=== PATIENT | female | born 1955 | race Caucasian/White ===

== ENCOUNTER 2024-07-12 12:21 | Outpatient (REF) | payer MEDICARE, SELFPAY ==
--- NOTE | ~2024-07-12 | XR_ITS ---
EXAMINATION: XR KNEE, LEFT CLINICAL INFORMATION: M25.562 - Pain in left knee COMPARISON: October 12, 2007 x-rays not available on PACS, the report size degenerative arthritis in the medial joint. TECHNIQUE: Four views of the left knee. FINDINGS: Joint space narrowing involving medial and to a lesser extent lateral compartment and the patellofemoral joint. There is sclerosis at the articular surface of the medial tibial plateau and medial femoral condyle. There are marginal osteophyte formation both femoral condyles and tibial plateaus and the posterior superior and posterior inferior patella. No gross suprapatellar bursa joint effusion. No acute cortical disruption or malalignment. No lytic or blastic lesions. XR/XR knee LT 3V IMPRESSION: Moderate to severe tricompartmental osteoarthrosis involving mostly the medial compartment. Electronically signed by: Hua De La Fuente MD 07/15/2024 08:33 AM JULIA
--- OUTSIDE RECORDS SUMMARY | 2024-07-13 14:41 | XMS_ITS | Encounter Summary ---
Author Organization [facility] [place] [address] Care Team Providers Care Carpet Technician Name Role Phone Sadie Mccurdy DO Primary Care Provider [phone] Encounter Details Date Type Department Care Team (Late st Contact Info) Description 07/13/2024 Notes Only Hematology [place] [address] Nabeel Ocasio, RN Social History Tobacco Use Types Packs/Day Years Used Date Smoking Tobacco: Never Smokeless Tobacco: Never Alcohol Use Standard Drinks/Week Comments Yes 4 (1 standard drink = 0.6 oz pur e alcohol) Sex and Gender Information Value Date Recorded Sex Assigned at Female 06/02/2021 3:00 PM EST Gender Identity Female 02/09/2020 3:19 PM EDT Sexual Orientation Not on file documented as of this encounter Progress Notes * Nabeel Ocasio RN - 07/13/2024 9:22 AM EST RESEARCH NURSE TELEPHONE NOTE C31200: A Phase III Randomized, Double-Blind, Multicenter Study of Dostarlimab (TSR-042) plus Carboplatin -Paclitaxel vs. Placebo Plus Carboplantin - Paclitaxel in Patients with Recurrent or Primary Advanced Endometrial Cancer (FABIOLA). Date: 07/13/2024 Time: 9:29 AM Reason for call: Called to check on status of questionnaire we had mailed her. Questionnaire due bytomorrow. Received a voice message with Elyssa Romero identifying herself. Left a message reminding her that the questionnaire we mailed her is due by tomorrow and asking her to complete it and send in by tomorrow. Asked her to call me with an update. Left my callback number. Plan: Will wait for callback. If no callback by tomorrow, will call again. Pt will continue on study [id number] in survival per protocol. Patient being followed at [facility], Will continue to contact for survival and questionnaires per protocol. documented in this encounter Plan of Treatment Not on file documented as of this encounter Visit Diagnoses Not on filedocumented in this encounter Care Teams Carpet Technician Relationship Specialty Start Date End Date Sadie Mccurdy DO [address] [place] [address] PCP - General Internal Medicine 10/28/18 documented as of this encounter
--- OUTSIDE RECORDS SUMMARY | 2024-07-13 14:41 | XMS_ITS ---
Author Organization [facility] Address [address] [place] [address] Care Team Providers Care Ophthalmology Assistant Name Role Phone Dr Sadie Mccurdy Primary Care Provider Mikal Medrano MD MSc, Joann Unavailable [phone] Nancy Holley Unavailable [phone] REASON FOR VISIT Knee pain Encounters Encounter Location Date Provider Diagnosis [facility]- [address] [address] 05/26/2023 Nancy Holley Plan Of Treatment No Information Progress Notes * Louie HUNTaDOB:1955 (68 yo F)Acc No.[id number]:05/26/2023 Progress Note Patient:?Elyssa HNUT Provider:?Nancy Martinez NP :1955???Age:67 Y???Sex:Female D ate:05/26/2023 Address:[facility] [address], [place], [phone] Pcp:Dr Sadie Mccurdy Subjective: * Chief Complaints: * ???1. Knee pain. * Medical History:? Objective: * Vitals:? Assessment: Plan: * Treatment: * Images: Billing Information: * Visit Code:? * Procedure Codes:? * Electronic signature of Yaw Holley NP on 07/13/2024 at 02:41 PM EST Sign off status: Pending * Provider:?Nancy Martinez NP Date:?05/26 Generated for Mervin villatoro/Nicole/eTransmitting on:?07/13/2024 02:41 PM EST
--- OUTSIDE RECORDS SUMMARY | 2024-07-13 14:41 | XMS_ITS | Clinical Summary ---
Author Organization [facility] Address [facility] [place] [address] Care Team Providers Care Supervisor Parachute Manufacturing Name Role Phone Sadie Mccurdy DO Primary Care Provider Allergies Active Allergy Reactions Criticality Noted Date [...] in partial remission 10/28/2018 Elevated cholesterol 10/28/2018 Encounters Date Type Department Care Team Description 07/13/2024 Notes Only Hematology and Oncology at [facility] [place] [address] Nabeel Ocasio RN from Last 3 Months Immunizations Name Administration Dates Next Due Covid-19 Monovalent (Moderna Spikevax) 12yrs+ (3357-9917) 08/23/2020,07/26/2020 Social History Tobacco Use Types Packs/Day [...] 01/10/2020, 01/10/2020 Medical Devices Explanted Type Area Unix Analyst Device Identifier Shelf Expiration Date Model / Serial / Lot Port Infusion 8fr Cath Power Lp Ct Plastic Dignity ([id number])-04/11/2020 Implanted:Qty : 1 on 04/11/2020 by Candie Centeno APRN Explanted:Qty : 1 on 11/06/2020 by Louie Man MD IMPLANTS Chest Wall [employer] - MEDCOMP IN [id number] / / [id number] Description:8FR MINI POWER P ORT IN RIGHT [...] Screening: January 27, 2024 - Exam #: [id number] Bilateral CC and MLO view(s) were taken. Technologist: TONIO Moser RT (R) (M) (ARRT) Prior study comparison: January 14, 2023, bilateral MA mammogram digital screening performed at . December 05, 2021, bilateral MA mammogram digital screening performed at . ??December 04, 2020, bilateral [place] mammogram digital screening performed at . The breast tissue is heterogeneously dense, which [...] Screening: January 27, 2024 - Exam #: [id number] Bilateral CC and MLO view(s) were taken. Technologist: TONIO Moser RT (R) (M) (ARRT) Prior study comparison: January 14, 2023, bilateral MA mammogram digital screening performed at . December 05, 2021, bilateral [place] mammogram digital screening performed at . December 04, 2020, bilateral [place] mammogram digital screening performed at . The breast tissue is heterogeneously dense, which [...] *#* *#* Read by: Gordy Romero M.D. Thaiephraim Mccurdy DO G MAMMO ORDERABLES * Comprehensive metabolic panel (non-fasting) (10/16/2021 12:39 PM EDT) Glucose 88 65 - 199 mg/dL [facility] Comment:Diabetes: >=200 mg/d L plus symptoms Blood Urea Nitrogen 12 8 - 18 mg/dL [facility] Creatinine 0.76 0.70 - 1.20 mg/dL [facility] Sodium 141 135 - 145 mmol/L [facility] Potassium 4.1 3.5 - 5.0 mmol/L [facility] Comment: Please note: ??Patients with WBC >100,000 may have falsely elevated Potassium levels. ??For accurate Potassium quantification in these patients send serum separator tube (gold top) for subsequent determinations. ??Contact the Clinical Chemistry Laboratory if there are any questions. Chloride 106 98 - 107 mmol/L [facility] Carbon Dioxide 25 22 - 31 mmol/L [facility] Anion Gap 10 5 - 15 mmol/L [facility] Calcium 9.6 8.5 - 10.5 mg/dL [facility] Protein, Total 7.0 6.1 - 8.0 g/dL [facility] Albumin 4.6 3.2 - 5.2 g/dL [facility] Aspartate Aminotransferase 18 0 - 30 unit/L [facility] Alanine Aminotransferase 18 0 - 30 unit/L [facility] Alkaline Phosphatase 45 35 - 105 unit/L [facility] Bilirubin, Total 0.5 0.2 - 1.3 mg/dL [facility] Est Glomerular Filtration Rate 83 >=60 mL/min/1. 73 m?? [facility] Comment: This patient? s estimated glomerular [...] In Lab Konrad Maldonado MD CHEMISTRY ORDERABLES [facility] [place] [address] * COLONOSCOPY (01/10/2020 3:33 PM EDT) COLONOSCOPY [facility] Endoscopy Procedure Date: 01/10/2020 3:33 PM ? Patient Name: Elyssa Romero ? Date of : 1955 ? Age: 64 ? Order #: [id number] ? Instrument Name: [id number] ? Procedure: ? Colonoscopy Indications: ? High risk colon cancer surveillance: ? Personal history of colonic polyps Providers: ? Nata Landin MD, Chaim Maldonado, ? RN, Yury Woodard MD: ?Sadie Mccurdy Medicines: ? Monitored Anesthesia Care Complications: ? No [...] preparation was evaluated using ? the BBPS ([place] Bowel Preparation ? Scale) with scores of: [...] individual at high risk CPT copyright 2019 [employer]. All rights reserved. The codes documented in this report are preliminary and upon chain maker hand review may be revised to meet current [...] Documents on File Type Date Recorded Patient Press Leader Expl anation Advance Directives and Livin g [...] Status decision made by: Patient Care Teams Supervisor Parachute Manufacturing Relationship Specialty Start Date End Date Sadie Mccurdy DO [address] [place] [address] PCP - General Internal Medicine 10/28/18
--- OUTSIDE RECORDS SUMMARY | 2024-07-13 14:41 | XMS_ITS ---
Author Organization [facility] Address [facility] [place] [address] Care Team Providers Care Motor Vehicle Lecturer Name Role Phone Sadie Mccurdy DO Primary Care Provider [phone] Active Problems Problem Noted Date Diagnosed Date Osteoarthritis of both knees 11/06/2020 Chemotherapy-induced thrombocytopenia 07/17/2020 Recurrent carcinoma of endometrium 03/09/2020 Mild intermittent asthma 10/28/2018 Recurrent major depressive disorder, in partial remission 10/28/2018 Elevated cholesterol 10/28/2018 Current Oncology Plans No current plan information found. Past Plans ADULT INVESTIGATIONAL Plan Name Start Date Discontinue Date Treatment Medications Discontinue Reason Plan Provider Cycles [id number] AMB - (CARBOplatin / PACLitaxel / [id number] DOSTARLIMAB OR PLACEBO) 020 03/06/2022 CARBOplatin (Paraplatin) in 150 mL [id number] dostarlimab or placebo infusionPACLitaxeL (Taxol) in Non-PVC sodium chloride 0.9% 250 mL infusion Therapy Complete Konrad Maldonado MD 13 of 14 cycles started Mediport Maintenance Plan Name Start Date Discontinue Date Treatment Medications Discontinue Reason Plan Provider DH MEDIPORT ADMINISTRATION 06/05/2020 12/02/2023 No medications scheduled. Therapy Complete - Radiation Treatments * No radiation treatments are documented for this patient in [facility]. Treatments may have been administered in another system. Lifetime Dose Tracking * Chemical Lifetime Dose Automatic Entry Manual Entr y DLP (Dose Length Product) 2,601 mGy-cm 2,601 mGy-cm 0 mGy-cm CTDI (CT Dose Index) Min 36.91 mGy 36.91 mGy 0 m Gy CTDI (CT Dose Index) Max 36.91 mGy 36.91 mGy 0 m Gy
--- OUTSIDE RECORDS SUMMARY | 2024-07-13 14:42 | XMS_ITS ---
Author Organization [facility] Address [address] [place] [address] Care Team Providers Care Senior Health Physics Technician Name Role Phone Dr Sadie Mccurdy Primary Care Provider Mikal Medrano MD MSc, [facility] [phone] REASON FOR VISIT Former Stem Cell Encounters Encounter Location Date Provider Diagnosis [facility] [address] [address] 05/26/2023 Joann Medrano Plan Of Treatment No Information Progress Notes * Louie HUNTaDOB:1955 (68 yo F)Acc No.[id number]:05/26/2023 Patient:?Elyssa HUNT Provider:?Joann Medrano MD MSc :1955???Age:67 Y???Sex:Female D ate:05/26/2023 Address:[facility] [address], [place], [id number] Pcp:Dr Sadie Mccurdy Subjective: * Chief Complaints: * ???1. Former Stem Cell. * Medical History:? Objective: * Vitals:? Assessment: Plan: * Treatment: * Images: Billing Information: * Visit Code:? * Procedure Codes:? * Electronic signature of Annalise Medrano MD MSc, MD on 07/13/2024 at 02:41 PM EST Sign off status: Pending * Provider:?Joann Medrano MD MSc Date:?05/11 Generated for Mervin villatoro/Asadg/eTransmitting on:?07/13/2024 02:41 PM EST
== END 2024-07-12 12:22 | disposition home or self-care (01) ==
LOC: HO.HOSX 12:21
PROVIDERS: Visit Provider Orthopaedic Surgery
DX: M25.562 Pain in left knee (principal); M17.12 Unilateral primary osteoarthritis, left knee
CPT/HCPCS: 73562; 99212

== ENCOUNTER 2024-07-12 12:43 | Outpatient (AMB) | payer MEDICARE, SELFPAY ==
--- NOTE | 2024-07-12 12:59 | MHC.OFFVIS ---
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 She describes her pain as sharp and severe in nature. Her pain has gotten worse over the last 5 years in spite of continued non operative treatments. She has had injections in the past which gave her minimal relief. She has also done physical therapy exercises which aggravated her pain. She has tried Tylenol and anti-inflammatory medicines which gave her minimal relief. The patient has difficulty walking even short distances because of her pain. At this point her left knee pain is interfering with her activities of daily living and her ability to sleep well through the night. Allergies amoxicillin [AMOXICILLIN] Allergy (Severe, Unverified 07/12/24 13:07) Rash Medication List - Last Reconciled 07/12/24 by Ari Gonzales MD abemaciclib 50 mg PO BID fluticasone propionate 50 mcg/actuation intranasal DAILY letrozole mg PO DAILY metformin 500 mg PO DAILY paroxetine HCl mg PO DAILY Physical Exam Vital Signs: BMI result Body Mass Index 29.9 Const Other: Well-nourished well-developed very friendly female awake alert and oriented x3 in no acute distress Extrem Other: Bilateral lower extremity examination shows good capillary refill, no skin lesions noted, normal sensation light touch Left knee examination shows a minimal effusion, palpable crepitus with range of motion, pain with range of motion, range of motion from -3 degrees to 115 degrees, no instability Results Reviewed Results Reviewed: X-rays of the patient's left knee show end-stage degenerative joint disease with grade 4 tqyw-pd-vmvj arthritis, subchondral sclerosis, no acute bony abnormalities Assessment & Plan Assessment & Plan (1) Arthritis of left knee: Code(s): M17.12 - Unilateral primary osteoarthritis, left knee Category: Medical Plan Ms. Romero presents with progressively worsening left knee pain due to end-stage degenerative joint disease. I had a lengthy discussion with the patient regarding the treatment options. At this point she has failed continued non operative treatments. The risks and benefits of left total knee replacement surgery were discussed at length with the patient. The patient wishes to proceed. She will be scheduled for next available date. I will see her back 1 week prior to her surgery to answer any final questions that she might have. I spent 22 minutes in reviewing the patient's records and imaging studies, seeing the patient and documenting in the medical record. Orders: Orders XR knee LT 3V 07/12/24 M25.562 - Pain in left knee Coding Level of Care Code Est Pt Level 3 (85830) Complex EM visit Add On G2211 Diagnoses Arthritis of left knee M17.12
[2024-07-12 13:06] VITALS: BMI 29.9
--- OUTSIDE RECORDS SUMMARY | 2024-07-12 15:43 | XMS_ITS ---
Author Organization [facility] Address [address] [place] [address] Care Team Providers Care Debone Processing Supervisor Name Role Phone Dr Sadie Mccurdy Primary Care Provider Mikal Medrano MD MSc, Joann Unavailable [phone] Nancy Holley Unavailable [phone] REASON FOR VISIT Knee pain Encounters Encounter Location Date Provider Diagnosis [facility]- [address] [address] 05/26/2023 Nancy Holley Plan Of Treatment No Information Progress Notes * Louie HUNTaDOB:1955 (68 yo F)Acc No.[id number]:05/26/2023 Progress Note Patient:?Elyssa HUNT Provider:?Nancy Martinez NP :1955???Age:67 Y???Sex:Female D ate:05/26/2023 Address:[facility] [address], [place], [place] Pcp:Dr Sadie Mccurdy Subjective: * Chief Complaints: * ???1. Knee pain. * Medical History:? Objective: * Vitals:? Assessment: Plan: * Treatment: * Images: Billing Information: * Visit Code:? * Procedure Codes:? * Electronic signature of Yaw Holley NP on 07/12/2024 at 03:43 PM EST Sign off status: Pending * Provider:?Nancy Martinez NP Date:?05/26 Generated for Mervin villatoro/Nicole/eTransmitting on:?07/12/2024 03:43 PM EST
--- OUTSIDE RECORDS SUMMARY | 2024-07-12 15:43 | XMS_ITS | Patient Health Record ---
Author Organization [facility] Address [address] [id number] Care Team Providers Care Sharepoint Developer Name Role Phone Dr Sadie Mccurdy Primary Care Provider Mikal Medrano MD MSc, Joann Unavailable [phone] Allergies Allergen (clinical drug ingredient) Drug/Non Drug Allergy documented on EMR Reaction Allergy Type Onset Date Status seasonal (uncoded) Unknown Allergy A ctive amoxicillin Amoxicillin hives Drug Allergy Act dominique Reason For Referral No Information Medications Medication SIG (Take, Route, Frequency, Duration) Notes Start Date End Date Status Paxil 10 MG 1 tablet in the morn ing Orally Once a day for 30 days Active Letrozole 2.5 MG 1 tablet Orally Once a day Active Abemaciclib 50 MG 1 tablet Orally Twic e a day Active metFORMIN HCl 500 MG 1 tablet with a esther l Orally Once a day Active Acetaminophen-Codeine 300-15 MG 1-2 tablet as needed Orally bid prn for 3 days 04/18/2018 Not-Taking Senna S 8.6-50 MG 1 tablet as needed Orally Twice a day Active ALPRAZolam 0.25 MG 1 tablet Orally 1 ho ur before procedure. REpeat once at time of procedure for 1 days 04/18/2018 Not-Taking Hyaluronic Acid 100 MG as directed Orally Active Cephalexin 500 MG 2 capsule Orally 1 h our before procedure for 1 days 04/18/2018 Not-Taking Alpha Lipoic Acid 200 MG 1 capsule Orall y Once a day Active Turmeric 500 MG as directed Orally Not-Taking Stanley 3 1000 MG 1 capsule Orally Onc e a day for 30 day(s) Not-Taking Pravastatin Sodium 20 MG 1 tablet Orally Once a day for 30 day(s) Not-Taking Calcium + D 315-200 MG-UNIT 1 tablet Orally Twice a day for 30 day(s) Active Multivitamin Adults 50+ - as directed Orally Active Social History Alcohol screen Question Answer Notes Did you have a drink contain ing alcohol in the past year? Yes How often did you have a dri nk containing alcohol in the past year? Four or more times a week How many drinks did you have on a typical day when you were drinking in the past year? 1 or 2 How often did you have six o r more drinks on one occasion in the past year? Never Points 4 Interpretation Positive Problems Problem Type SNOMED Code ICD Code Onset Dates Problem Status W/U Status Risk Notes Problem [id number] Primary osteoarthritis of knees, bilateral (M17.0) Active confirmed Plan Of Treatment No Information Insurance Providers Payer Name Payer Address Payer Phone Subscriber Number Group Number Insured Name Patient Relationship to Insured Coverage Start Date Coverage End Date MEDICARE NGS [address] [place] [address] [id number] Nick Elyssa Self - patient is the insured [place] of [place] [address] [place], [place] [id number] Louie Romeroa Self - patient is the insured Medical (General) History Medical History History ICD Code Cancer- uterine s/p hysterec frederic July 2017 with clear margins and no lymph node involvement. Clinical Research Specialist oncologist - Dr Tucker. 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 States that 06/15/23 she has had a clean CT scan without evidence of recurrent ca HyperCholesterolemia asthma Bronchitis Anxiety disorder Depression Varicose veins Surgical History Surgery Date(Month/Year) Hysterectomy for endometrial cancer- in situ, no lymph node involvement. 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
--- OUTSIDE RECORDS SUMMARY | 2024-07-12 15:43 | XMS_ITS | Clinical Summary ---
Author Organization [facility] Address [facility] [place] [address] Care Team Providers Care Sanitary Napkin Machine Tender Name Role Phone Sadie Mccurdy DO Primary Care Provider [phone] Allergies Active Allergy Reactions Criticality Noted Date Comments Adhesive 12/07/2017 Transparent Dressings 04/24/2020 USE SORBAVIEW. Gets eczema. Pt states tegaderm on a peripheral IV is fine. Tree Nuts Other (See Comments) 03/09/2020 Tingling in mouth Whey Nausea Only,Rash 10/28/2018 Medications Medication Sig Dispensed Refills Start Date End Date Status CALCIUM ACETATE ORAL Take by mouth. Active PARoxetine (Paxil) 10 mg Tablet Take 15 mg by mouth Daily. Active multivitamin Capsule Take 1 capsule by mouth Daily. Active turmeric 400 mg Capsule Take by mouth. Active cholecalciferol, Vitamin D3, 1,000 unit Tablet Take by mouth daily. Active Alpha Lipoic Acid 50 mg Tablet Take by mouth. Active Red Yeast Rice Extract 600 mg Capsule Take 600 mg by mouth daily. Active ibuprofen (Motrin) 400 mg Tablet Take 400 mg by mouth every 6 hours as needed for Pain. Active acetaminophen (Tylenol) 500 mg Tablet Take 1,000 mg by mouth every 6 hours as needed for Pain. Active senna-docusate (Pericolace) 8.6-50 mg Tablet Take 2 tablets by mouth 2 times daily. Active albuteroL 90 mcg/actuation HFA Aerosol Inhaler INHALE 1 TO 2 PUFFS VIA SPACER EVERY 4 HOURS NEEDED FOR WHEEZING 07/12/2021 Active Active Problems Problem Noted Date Diagnosed Date Osteoarthritis of both knees 11/06/2020 Chemotherapy-induced thrombocytopenia 07/17/2020 Recurrent carcinoma of endometrium 03/09/2020 Mild intermittent asthma 10/28/2018 Recurrent major depressive disorder, in partial remission 10/28/2018 Elevated cholesterol 10/28/2018 Immunizations Name Administration Dates Next Due Covid-19 Monovalent (Moderna Spikevax) 12yrs+ (8317-1518) 08/23/2020,07/26/2020 Social History Tobacco Use Types Packs/Day Years Used Date Smoking Tobacco: Never Smokeless Tobacco: Never Alcohol Use Standard Drinks/Week Comments Yes 4 (1 standard drink = 0.6 oz pur e alcohol) Sex and Gender Information Value Date Recorded Sex Assigned at Female 06/02/2021 3:00 PM EST Gender Identity Female 02/09/2020 3:19 PM EDT Sexual Orientation Not on file Last Filed Vital Signs Vital Sign Reading Time Taken Comments Blood Pressure 116/73 12/03/2021 3:39 PM EDT Pulse 85 12/03/2021 3:39 PM EDT Temperature 36.7 ??C (98 ??F) 12/03/2021 3:39 PM EDT Respiratory Rate 16 12/03/2021 3:39 PM EDT Oxygen Saturation 99% 12/03/2021 3:39 PM EDT Inhaled Oxygen Concentration - - Weight 84.5 kg (186 lb 4.6 oz) 12/03/2021 3:39 P M EDT Height 168.9 cm (5' 6.5 ) 12/03/2021 3:39 PM EDT Body Mass Index 29.62 12/03/2021 3:39 PM EDT Plan of Treatment Health Maintenance Due Date Last Done Comments CT Colonography 1955 FIT DNA 1955 FIT 1955 Sigmoidoscopy 1955 Hepatitis C Screening 12/10/1975 Pneumoccocal Vaccine: 50+ (1 of 2 - PCV) 1976 Tetanus/Diphtheria/Pertussis Vaccines (1 - Tdap) 1976 HPV test 12/10/1987 PAP Smear 12/10/1987 Breast Cancer Share Decision Needed 1997 Zoster vaccine (1 of 2) 12/10/2007 RSV Vaccine (1 - Risk 60-74 years 1-dose series) 2017 Bone Density Scan 2022 Covid-19 Vaccine (3 - 2023-2 5 season) 2024 08/23/2020, 07/26/2020 Influenza (Flu) vaccine (1 o f 1 - Influenza standard series) 01/10/2024 Diabetes Screening (HgbA1C o r Glucose) 10/16/2024 10/16/2021, 09/04/2021, 07/16/2021, Additional history exists Colonoscopy 01/09/2025 01/10/2020, 01/10/2020 Colorectal Cancer Screening 01/09/2025 Breast Cancer screening 01/26/2026 01/27/20 24, 01/14/2023, 12/05/2021, Additional history exists Sigmoidoscopy (10 year) with FIT yearly 01/09/2030 01/10/2020, 01/10/2020 Medical Devices Explanted Type Area Bed Spring Maker Device Identifier Shelf Expiration Date Model / Serial / Lot Port Infusion 8fr Cath Power Lp Ct Plastic Dignity ([id number])-04/11/2020 Implanted:Qty : 1 on 04/11/2020 by Candie Centeno APRN Explanted:Qty : 1 on 11/06/2020 by Louie Man MD IMPLANTS Chest Wall [employer] - MED[employer] IN [id number] / / [id number] Description:8FR MINI POWER P ORT IN RIGHT IJ Procedures Procedure Name Priority Date/Time Associated Diagnosis Comments MAMMO SCREENING CAD AND MIKE BILATERAL Routine 01/27/2024 HC VENIPUNCTURE STAT 10/16/2021 12:39 PM EDT Recurrent carcinoma of endometrium COLONOSCOPY Routine 01/10/2020 3:33 PM EDT from Last 3 Months or Most Recently Relevant to Health Maintenance Results * Mammo Screening Cad and Mike Bilateral (01/27/2024) Anatomical Region Laterality Modality Breast Bilateral Mammography 01/27/2024 Narrative 01/27/2024 2:47 PM EDT Ord Phys: Sadie Mccurdy PATIENT IS POSTMENOPAUSAL AND HAS HISTORY OF ENDOMETRIAL CANCER AT AGE 61. FAMILY HISTORY OF BREAST CANCER AT AGE 60 IN SISTER. BENIGN CORE BIOPSY OF THE RIGHT BREAST, 1981. TOOK HORMONAL CONTRACEPTIVES FOR 4 MONTHS. ??TAKING PROGESTERONE. PATIENT'S BMI IS 29.8. Last mammogram was performed 1 year ago. Reason for exam: screening, asymptomatic screening for breast cancer;Z12.31 Encounter for screening mammogram for malignant ne [place] Mammogram Digital Screening: January 27, 2024 - Exam #: [id number] Bilateral CC and MLO view(s) were taken. Technologist: TONIO Moser RT (R) (M) (ARRT) Prior study comparison: January 14, 2023, bilateral [place] mammogram digital screening performed at [facility]. December 05, 2021, bilateral [place] mammogram digital screening performed at [facility]. ??December 04, 2020, bilateral [place] mammogram digital screening performed at [facility]. The breast tissue is heterogeneously dense, which could obscure detection of small masses. ??Bilateral mammography with CAD and digital breast tomosynthesis was performed. No dominant mass, architectural distortion or suspicious microcalcifications are seen. Benign-appearing calcifications are seen in each breast. ASSESSMENT: Benign - Category 2 Routine screening mammogram of both breasts in 1 year. Electronically Signed By: Gordy ?MD Nick *#* *#* Read by: Gordy Romero M.D. Procedure Note Gordy Romero MD - 01/27/2024 Ord Phys: Sadie Mccurdy PATIENT IS POSTMENOPAUSAL AND HAS HISTORY OF ENDOMETRIAL CANCER AT AGE 61. FAMILY HISTORY OF BREAST CANCER AT AGE 60 IN SISTER. BENIGN CORE BIOPSY OF THE RIGHT BREAST, 1981. TOOK HORMONAL CONTRACEPTIVES FOR 4 MONTHS. TAKING PROGESTERONE. PATIENT'S BMI IS 29.8. Last mammogram was performed 1 year ago. Reason for exam: screening, asymptomatic screening for breast cancer;Z12.31 Encounter for screening mammogram for malignant ne [place] Mammogram Digital Screening: January 27, 2024 - Exam #: [id number] Bilateral CC and MLO view(s) were taken. Technologist: TONIO Moser RT (R) (M) (ARRT) Prior study comparison: January 14, 2023, bilateral [place] mammogram digital screening performed at [facility]. December 05, 2021, bilateral [place] mammogram digital screening performed at [facility]. December 04, 2020, bilateral [place] mammogram digital screening performed at [facility]. The breast tissue is heterogeneously dense, which could obscure detection of small masses. Bilateral mammography with CAD and digital breast tomosynthesis was performed. No dominant mass, architectural distortion or suspicious microcalcifications are seen. Benign-appearing calcifications are seen in each breast. ASSESSMENT: Benign - Category 2 Routine screening mammogram of both breasts in 1 year. Electronically Signed By: Gordy Romero MD *#* *#* Read by: Gordy Romero M.D. Sadie PICKETT MAMMO ORDERABLES * Comprehensive metabolic panel (non-fasting) (10/16/2021 12:39 PM EDT) Glucose 88 65 - 199 mg/dL [facility] Comment:Diabetes: >=200 mg/d L plus symptoms Blood Urea Nitrogen 12 8 - 18 mg/dL [facility] Creatinine 0.76 0.70 - 1.20 mg/dL [facility] Sodium 141 135 - 145 mmol/L [facility] Potassium 4.1 3.5 - 5.0 mmol/L [facility] Comment: Please note: ??Patients with WBC >100,000 may have falsely elevated Potassium levels. ??For accurate Potassium quantification in these patients send serum separator tube (gold top) for subsequent determinations. ??Contact the Clinical Chemistry Laboratory if there are any questions. Chloride 106 98 - 107 mmol/L [facility] Carbon Dioxide 25 22 - 31 mmol/L [facility] Anion Gap 10 5 - 15 mmol/L [facility] Calcium 9.6 8.5 - 10.5 mg/dL [facility] Protein, Total 7.0 6.1 - 8.0 g/dL [facility] Albumin 4.6 3.2 - 5.2 g/dL [facility] Aspartate Aminotransferase 18 0 - 30 unit/L [facility] Alanine Aminotransferase 18 0 - 30 unit/L [facility] Alkaline Phosphatase 45 35 - 105 unit/L [facility] Bilirubin, Total 0.5 0.2 - 1.3 mg/dL [facility] Est Glomerular Filtration Rate 83 >=60 mL/min/1. 73 m?? [facility] Comment: This patient? s estimated glomerular filtration rate (eGFR) is between 83 mL/min/1.73 m2 (patients with less muscle mass) and 97 mL/min/1.73 m2 (patients with more muscle mass) as determined by the CKD-EPI equation. Assessment of eGFR is not appropriate when creatinine concentrations are rapidly changing. For clinical decisions where creatinine clearance will affect therapy, a 24-hour urine creatinine clearance may be advised. Assignment of CKD stage 1 - 5 for patients with an eGFR near the transition point between stages may be based on clinical assessment of muscle mass and symptoms in addition to eGFR. Blood 10/16/2021 12:3 9 PM EDT 10/16/2021 12:42 PM EDT Narrative Resulting Agency Comment Spec In Lab Konrad Maldonado MD CHEMISTRY ORDERABLES Performing Organization Address City/State/[facility] Co de Phone Number [facility] [place] [address] * COLONOSCOPY (01/10/2020 3:33 PM EDT) COLONOSCOPY [facility] Endoscopy Procedure Date: 01/10/2020 3:33 PM ? Patient Name: Elyssa Romero ? Date of : 1955 ? Age: 64 ? Order #: [id number] ? Instrument Name: [id number] ? Procedure: ? Colonoscopy Indications: ? High risk colon cancer surveillance: ? Personal history of colonic polyps Providers: ? Nata Landin MD, Chaim Maldonado, ? RN, Yury Woodard MD: ?Sadie Mccurdy [facility]: ? Monitored Anesthesia Care Complications: ? No immediate complications. Procedure: ? Pre-Anesthesia Assessment: ? - Prior to the procedure, a History ? and Physical was performed, and ? patient medications and allergies ? were reviewed. The patient's ? tolerance of previous anesthesia was ? also reviewed. The risks and benefits ? of the procedure and the sedation ? options and risks were discussed with ? the patient. All questions were ? answered, and informed consent was ? obtained. Prior Anticoagulants: The ? patient has taken no previous ? anticoagulant or antiplatelet agents. ? ASA Grade Assessment: II - A patient ? with mild systemic disease. After ? reviewing the risks and benefits, the ? patient was deemed in satisfactory ? condition to undergo the procedure. ? The procedure, indications, benefits, ? risks and alternatives were explained ? to the patient. Specifically ? discussed were potential ? complications including, but not ? limited to, bleeding, perforation, ? infection, missing a cancer, and ? adverse medication reactions. The ? patient was placed in the left ? lateral decubitus position, and a ? digital rectal exam was performed. ? The Colonoscope was inserted in the ? anus and under direct visualization, ? advanced to the cecum, identified by ? appendiceal orifice and ileocecal ? valve. Careful inspection was made as ? the colonoscope was withdrawn. The ? colonoscopy was performed without ? difficulty. The patient tolerated the ? procedure well. The quality of the ? bowel preparation was evaluated using ? the BBPS ([place] Bowel Preparation ? Scale) with scores of: Right Colon = ? 3, Transverse Colon = 3 and Left ? Colon = 3 (entire mucosa seen well ? with no residual staining, small ? fragments of stool or opaque liquid). ? The total BBPS score equals 9. ? Withdrawal time was 13 minutes. ? Findings: ? The perianal and digital rectal examinations were ? normal. ? The terminal ileum appeared normal. ? The sigmoid colon, descending colon, transverse ? colon, ascending colon and cecum appeared normal. ? The retroflexed view of the distal rectum and anal ? verge was normal and showed no anal or rectal ? abnormalities. ? Moderate Sedation: ? Not applicable - See Anesthesia documentation Impression: ?- The examined portion of the ileum ? was normal. ? - The sigmoid colon, descending ? colon, transverse colon, ascending ? colon and cecum are normal. ? - The distal rectum and anal verge ? are normal on retroflexion view. ? - No specimens collected. Recommendation: ?- Repeat colonoscopy in 5 years for ? surveillance. ? - Return to referring physician. ? Procedure Code(s): ?? --- Professional --- ? G0105, Colorectal cancer screening; ? colonoscopy on individual at high risk CPT copyright 2019 [employer]. All rights reserved. The codes documented in this report are preliminary and upon office nurse review may be revised to meet current compliance requirements. Attending Participation: ? I personally performed the entire procedure. ? Nata Landin MD _ Nata Landin MD 01/10/2020 4:29:35 PM This report has been signed electronically. Number of Addenda: 0 Note Initiated On: 01/10/2020 3:33 PM PROVATION 01/10/2020 3:33 PM EDT Sadie Mccurdy DO GENERAL SURGICAL ORD ERABLES PROVATION from Last 3 Months or Most Recently Relevant to Health Maintenance Advance Directives Documents on File Type Date Recorded Patient Leisure Studies Professor Expl anation Advance Directives and Livin g Will 05/08/2020 2:12 PM 06.10.20 * Attempt Cardiopulmonary Resuscitation - Inpatient (Latest Code Status on File) Date Activated Date Inactivated Comments 11/06/2020 2:28 PM 11/07/2020 4:40 AM Question Answer Comments Code Status decision made by: Patient * Attempt Cardiopulmonary Resuscitation - Inpatient Date Activated Date Inactivated Comments 04/11/2020 9:20 AM 04/12/2020 4:42 AM Question Answer Comments Code Status decision made by: Patient * Attempt Cardiopulmonary Resuscitation - Inpatient Date Activated Date Inactivated Comments 03/09/2020 10:46 AM 03/10/2020 1:41 PM Question Answer Comments Code Status decision made by: Patient * Attempt Cardiopulmonary Resuscitation - Inpatient Date Activated Date Inactivated Comments 03/09/2020 7:56 AM 03/09/2020 10:45 AM Question Answer Comments Code Status decision made by: Patient * Attempt Cardiopulmonary Resuscitation - Inpatient Date Activated Date Inactivated Comments 02/14/2020 9:12 AM 02/15/2020 5:09 AM Question Answer Comments Code Status decision made by: Patient Care Teams Sanitary Napkin Machine Tender Relationship Specialty Start Date End Date Sadie Mccurdy DO [address] [place] [address] PCP - General Internal Medicine 10/28/18
--- OUTSIDE RECORDS SUMMARY | 2024-07-12 15:43 | XMS_ITS ---
Author Organization [facility] Address [address] [place] [address] Care Team Providers Care Postal Service Sectional Center Manager Name Role Phone Dr Sadie Mccurdy Primary Care Provider Mikal Medrano MD MSc, Joann Unavailable [phone] Allergies Allergen (clinical drug ingredient) Drug/Non Drug Allergy documented on EMR Reaction Allergy Type Onset Date Status seasonal (uncoded) Unknown Allergy A ctive amoxicillin Amoxicillin hives Drug Allergy Act dominique REASON FOR VISIT Bilateral knee pain Medications Medication SIG (Take, Route, Frequency, Duration) Notes Start Date End Date Status metFORMIN HCl 500 MG 1 tablet with a esther l Orally Once a day Active Senna S 8.6-50 MG 1 tablet as needed Orally Twice a day Active Hyaluronic Acid 100 MG as directed Orally Active Letrozole 2.5 MG 1 tablet Orally Once a day Active Abemaciclib 50 MG 1 tablet Orally Twic e a day Active Acetaminophen-Codeine 300-15 MG 1-2 tablet as needed Orally bid prn for 3 days 04/18/2018 Not-Taking ALPRAZolam 0.25 MG 1 tablet Orally 1 ho ur before procedure. REpeat once at time of procedure for 1 days 04/18/2018 Not-Taking Cephalexin 500 MG 2 capsule Orally 1 h our before procedure for 1 days 04/18/2018 Not-Taking Alpha Lipoic Acid 200 MG 1 capsule Orall y Once a day Active Turmeric 500 MG as directed Orally Not-Taking Claremore 3 1000 MG 1 capsule Orally Onc e a day for 30 day(s) Not-Taking Pravastatin Sodium 20 MG 1 tablet Orally Once a day for 30 day(s) Not-Taking Calcium + D 315-200 MG-UNIT 1 tablet Orally Twice a day for 30 day(s) Active Multivitamin Adults 50+ - as directed Orally Active Paxil 10 MG 1 tablet in the morn ing Orally Once a day for 30 days Active Social History Alcohol screen Question Answer [...] past year? Never Points 4 Interpretation Positive Vital Signs Blood pressure systolic 144 mm Hg 06/15/19 24 Blood pressure diastolic 82 mm Hg 024 Height 5'7 in 06/15/2023 Weight 178 lbs 06/15/2023 BMI 27.88 06/15/2023 Encounters Encounter Location Date Provider Diagnosis [facility] [address] [place] [address] 06/15/2023 Joann Medrano Primary osteoarthrit is of knees, bilateral M17.0 Assessments Encounter Date Diagnosis (ICD Code) Assessment Notes Treatment Notes Treatment Clinical Notes Section Notes 06/15/2023 Primary osteoarthritis of knees, bilateral (ICD-10 - M17.0) Elyssa understands that she is not a candidate for orthobiologic treatment due to her cancer diagnosis. She is very encouraged about today's clean scan results. Discussed supplements that she might be able to take in context of her study participation. She has been told not to take collagen or curcumin or Miguel 40. Collagen is a food supplement - she will ask again if she can take it without compromising the study. CBD cream topically may be something else she is allowed to take. She should likely avoid supplements that increase NO (Beet root, Miguel 40, etc) She will ask the research team and child support investigator if Stem Regen is allowed. Details and ingredients are available at our front end loader operator and online It was a pleasure seeing Elyssa today and we celebrated with her the clean scan. The pt presents today for evaluation and management Plan Of Treatment Treatment Notes Assessment Notes Primary osteoarthritis of knees, bilater al Elyssa understands that she is not a candidate for orthobiologic treatment due to her cancer diagnosis. She is very encouraged about today's clean scan results. Discussed supplements that she might be able to take in context of her study participation. She has been told not to take collagen or curcumin or Miguel 40. Collagen is a food supplement - she will ask again if she can take it without compromising the study. CBD cream topically may be something else she is allowed to take. She should likely avoid supplements that increase NO (Beet root, Miguel 40, etc) She will ask the research team and child support investigator if Stem Regen is allowed. Details and ingredients are available at our front end loader operator and online It was a pleasure seeing Elyssa today and we celebrated with her the clean scan. Progress Notes * Louie HUNTaDOB:1955 (67 yo F)Acc No.[id number]:06/15/2023 Patient:?Elyssa HUNT Provider:?Joann Medrano MD MSc :1955???Age:67 Y???Sex:Female D ate:06/15/2023 Address:[facility] [address] [facility] [id number] Pcp:Dr Sadie Mccurdy Subjective: * Chief Complaints: * ???Bilateral knee pain * HPI: ???Pain Management:? Elyssa is well known to this office for orthobiologic treatment of bilateral knees in 2019 with good effect - she was able to continue skiing. ?She is s/p hysterectomy for uterine ca and was cleared for above procedure by her customer facilities supervisor oncologist. She has had a recurrence of metatstatic uterine ca and is s/p abdominal surgery , chemotherapy and is participating in a study at [facility]. ?She would like to take supplements that had been previously recommended but has restrictions due to the study on what she is able to take so as not to create confounding factors. ?67 year old female presents with c/o Pain in the ?bilateral knees L>R.?The pain began?many years ago.?The pain occurred?gradually without inciting event. Pt recounts that many years of skiing contributed to bilateral medial knee pain.?The pain is described as?aching, sharp/stabbing.?The pain radiates to stays local.?The pain is subjectivly graded as?0/10 present, 5/10 worst, 0/10 least, 2/10 average Rt ?0/10 present,8/10 worst,0/10 least,4/10 average (with Ibuprofen), Lt.?The timing of the pain is?Recurrent (more than half a day) -occurs with weight bearing.?The pain is associated with?weakness (Lt knee goes out with lateral knee motion)?difficulty walking, Post skiing or activity pain.?The pain is not associated with?bowel/bladder dysfunction, weakness, numbness, tingling,?.?The pain is improved by?sitting (not weight bearing), wearing an bulk tank car unloader knee brace, heat, ice, NSAIDS all provide good relief.?The pain is aggravated by?walking, lifting, standing, skiing, stairs, in one postion for too long.?Imaging studies/Tests that have been performed include?plain X-ray12/08/17 - moderate medial tibiofemoral compartment degenerative changes of both kness. ?XRay 11/04/17 left foot - moderate to severe OA of 1st MTP.?Non pharmacologic approaches that have been utilized include?physical therapy 2 years ago 07/02 helpful, director long term care 2011 not helpful, psychological support 2010, , massage gives good relief..?Litigation?no.?Medications that have been utilized include?non- steroidal anti-inflammatories give good relief.?Treatments have included?Maxcell bilateral knee 05/24/2018, PRP #2 07/07/2018.?Allery to Iodine, betadine, CT scan dye?No.?Feel fainted or have fainted around needles?No.?Fear of needles?No.?Fallen in the last 6 months?No.? Functional goals: Pt would like to be able to function post activity without taking Ibuprofen every time. ?Pt presents today for evaluation and management. * ROS:?Allergy:?Patient denies?latex allergies, recurrent infections.?Cardiology:?Patient denies?chest pain (angina), irregular heartbeats (palpitations), leg edema, tachyarrhythmias.?Constitutional:?Patient denies?fever, weight loss, weight gain.?Dermatology:?Patient denies?blisters, changing moles, dry or sensitive skin, hives, rash, sores, discolorations, non-healing lesions.?Endocrinology:?Patient denies?change in energy level, change in hair distribution, excessive sweating, excessive thirst, excessive urination, heat or cold intolerance, significant weight gain or loss.?ENT:?Patient denies?hearing changes, hoarseness, swallowing difficulties.?Gastroenterology:?Patient denies?abdominal pain, change in bowel habits, heartburn.?Hematology/Lymph:?Patient denies?abnormal bleeding, abnormal bruising, enlarged lymph nodes.?Musculoskeletal:?Patient denies?SeePMH/ HPI.?Neurology:?Patient denies?See PMH/ HPI.?Ophthalmology:?Patient denies?change in vision, loss of vision.?Psychology:?Patient denies?recent change in mood or behavior.?Respiratory:?Patient denies?cough, hemoptysis, shortness of breath, wheezing.? * Medical History:? * Surgical History:?Hysterecto my for endometrial cancer- in situ, no lymph node involvement. FUSING MACHINE TENDER oncologist Orin Tucker [phone] 07/26vein ligation C/S x3 excision of benign bone tumor right leg Dr Lisandro Maldonado, Abdominal surgery for cancer - s/p chemo 02/2020 * Hospitalization/Major Diagno stic Procedure:?Denies Past Hospitalization * Family History:?Father: dece ased, diagnosed with Heart Disease.?Mother: .?3 sister(s) - healthy. 3 daughter(s) - healthy. .? 2 sisters cancer. * Social History:?Alcohol: Min imal. Caffeine: daily. Persons in the home: Significant other. Smoking?Are you a?never smoked.?Alcohol screen?Did you have a drink containing alcohol in the past year??Yes,?How often did you have a drink containing alcohol in the past year??Four or more times a week,?How many drinks did you have on a typical day when you were drinking in the past year??1 or 2,?How often did you have six or more drinks on one occasion in the past year??Never,?Points?4,?Interpretation?Positive.?Opioid Risk Tool?Family history of alcoholism?No,?Family history of illegal drugs?No,?Family history of prescription drugs?No,?Personal alcoholism?No,?Personal history of illegal drugs?No,?Person history of prescription drugs?No.?Type of work: retired. Children: daughter(s)3. Exercise?Do you Exercise??Yes,?How often??Three times a week.?Marital status: . 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 Recreational drug use: no. * Medications:?TakingAlpha Lip oic Acid 200 MG Capsule 1 capsule Orally Once a day Hyaluronic Acid 100 MG Capsule as directed Orally Senna S(Sennosides-Docusate Sodium) 8.6-50 MG Tablet 1 tablet as needed Orally Twice a day metFORMIN HCl 500 MG Tablet 1 tablet with a meal Orally Once a day Abemaciclib 50 MG Tablet 1 tablet Orally Twice a day Letrozole 2.5 MG Tablet 1 tablet Orally Once a day Paxil(PARoxetine HCl) 10 MG Tablet 1 tablet in the morning Orally Once a day Multivitamin Adults 50+(Multiple Vitamins-Minerals) - Tablet as directed Orally Calcium + D 315-200 MG-UNIT Tablet 1 tablet Orally Twice a day Taking Alpha Lipoic Acid 200 MG Capsule 1 capsule Orally Once a day Taking Hyaluronic Acid 100 MG Capsule as directed Orally Taking Senna S(Sennosides-Docusate Sodium) 8.6-50 MG Tablet 1 tablet as needed Orally Twice a day Taking metFORMIN HCl 500 MG Tablet 1 tablet with a meal Orally Once a day Taking Abemaciclib 50 MG Tablet 1 tablet Orally Twice a day Taking Letrozole 2.5 MG Tablet 1 tablet Orally Once a day Taking Paxil(PARoxetine HCl) 10 MG Tablet 1 tablet in the morning Orally Once a day Taking Multivitamin Adults 50+(Multiple Vitamins- Minerals) - Tablet as directed Orally Taking Calcium + D 315-200 MG-UNIT Tablet 1 tablet Orally Twice a day Not-TakingPravastatin Sodium 20 MG Tablet 1 tablet Orally Once a day Claremore 3 1000 MG Capsule 1 capsule Orally Once a day Turmeric 500 MG Capsule as directed Orally Cephalexin 500 MG Capsule 2 capsule Orally 1 hour before procedure ALPRAZolam 0.25 MG Tablet 1 tablet Orally 1 hour before procedure. REpeat once at time of procedure Acetaminophen-Codeine 300-15 MG Tablet 1-2 tablet as needed Orally bid prn Medication List reviewed and reconciled with the patientNot-Taking Pravastatin Sodium 20 MG Tablet 1 tablet Orally Once a day Not-Taking Claremore 3 1000 MG Capsule 1 capsule Orally Once a day Not-Taking Turmeric 500 MG Capsule as directed Orally Not-Taking Cephalexin 500 MG Capsule 2 capsule Orally 1 hour before procedure Not-Taking ALPRAZolam 0.25 MG Tablet 1 tablet Orally 1 hour before procedure. REpeat once at time of procedure Not-Taking Acetaminophen-Codeine 300-15 MG Tablet 1-2 tablet as needed Orally bid prn Medication List reviewed and reconciled with the patient * Allergies:?seasonalAmoxicill in: hives - Side Effectsno[Allergies Verified] Objective: * Vitals:?Pain Scale: 0/10, Ht : 5'7 , Wt: 178, BMI: 27.88, BP: 144/82, HR: 82, SaO2: 99. * Examination: ???General examination: ?General appearance:?well developed and well nourished pleasant in no acute distress .?Neurologic exam:?Awake and alert, oriented to person, place, time and general circumstances, recent and remote memory intact, able to give personal history .? Assessment: * Assessment: 1.?Primary osteoarthritis of knees, bilateral - M17.0 (Primary)? The pt presents today for ev aluation and management. Plan: * Treatment: * Procedure Codes:?G8783 BP SC R PRFRM RCMDD DEFIND SCR INTVL * Preventive Medicine:?The total encounter time was 41 minutes, including chart review, [id number] time with pt, discussion of treatment plan, counseling, coordination of care and documenting above in chart. See note for details. Discussed treatment options. * Images: * Sign off status: Completed true * Provider:?Joann Medrano MD MSc Date:?09/2023 Generated for Mervin villatoro/Nicole/Haileyitting on:?07/12/2024 03:43 PM EST History and Physical Notes * HPI (History of Present Illness) Category Sub-Category Detail Notes Category Not es Pain Management Pain in the bilateral knees L>R Functional goals: Pt would like to be able to function post activity without taking Ibuprofen every time. Pt presents today for evaluation and management The pain radiates to stays local The pain is described as aching, sharp/s tabbing The pain is subjectivly graded as 0/10 p resent, 5/10 worst, 0/10 least, 2/10 average Rt 0/10 present,8/10 worst,0/10 least,4/10 average (with Ibuprofen), Lt The pain occurred gradually without in citing event. Pt recounts that many years of skiing contributed to bilateral medial knee pain The timing of the pain is Recurrent (mor e than half a day) -occurs with weight bearing The pain is associated with weakness (Lt knee goes out with lateral knee motion) difficulty walking, Post skiing or activity pain The pain is improved by sitting (not gabriel ght bearing), wearing an bulk tank car unloader knee brace, heat, ice, NSAIDS all provide good relief The pain is aggravated by walking, lifti ng, standing, skiing, stairs, in one postion for too long Non pharmacologic approaches that have been utilized include physical therapy 2 years ago 07/02 helpfu l, director long term care 2011 not helpful, psychological support 2010, , massage gives good relief. Treatments have included Maxcell bilater al knee 05/24/2018, PRP #2 07/07/2018 Imaging studies/Tests that h ave been performed include plain X-ray12/08/17 - moderate medial tib iofemoral compartment degenerative changes of both kness. XRay 11/04/17 left foot - moderate to severe OA of 1st MTP Litigation no The pain began many years ago Medications that have been utilized incl ude non-steroidal anti-inflammatories give good relief The pain is not associated with bowel/bl adder dysfunction, weakness, numbness, tingling, Allery to Iodine, betadine, CT scan dye No Feel fainted or have fainted around need les No Fear of needles No Fallen in the last 6 months No Examination Category Sub-Category Detail Notes Category Not es General examination General appearance: well dev eloped and well nourished pleasant in no acute distress Neurologic exam: Awake and alert, diallo ented to person, place, time and general circumstances, recent and remote memory intact, able to give personal history
--- OUTSIDE RECORDS SUMMARY | 2024-07-12 15:43 | XMS_ITS ---
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 Past Plans ADULT INVESTIGATIONAL Plan Name Start Date Discontinue Date Treatment Medications Discontinue Reason Plan Provider Cycles [id number] AMB - (CARBOplatin / PACLitaxel / [id number] DOSTARLIMAB OR PLACEBO) 020 03/06/2022 CARBOplatin (Paraplatin) in 150 mL [id number] dostarlimab or placebo infusionPACLitaxeL (Taxol) in Non-PVC sodium chloride 0.9% 250 mL infusion Therapy Complete Konrad Maldonado MD 13 of 14 cycles started Mediport Maintenance Plan Name Start Date Discontinue Date Treatment Medications Discontinue Reason Plan Provider DH MEDIPORT ADMINISTRATION 06/05/2020 12/02/2023 No medications scheduled. Therapy Complete - Radiation Treatments * No radiation treatments are documented for this patient in [facility]. Treatments may have been administered in another system. Lifetime Dose Tracking * Chemical Lifetime Dose Automatic Entry Manual Entr y DLP (Dose Length Product) 2,601 mGy-cm 2,601 mGy-cm 0 mGy-cm CTDI (CT Dose Index) Min 36.91 mGy 36.91 mGy 0 m Gy CTDI (CT Dose Index) Max 36.91 mGy 36.91 mGy 0 m Gy
--- OUTSIDE RECORDS SUMMARY | 2024-07-12 15:43 | XMS_ITS ---
Author Organization [facility] Address [address] [place] [address] Care Team Providers Care Bathing Suit Maker Name Role Phone Dr Sadie Mccurdy Primary Care Provider Mikal Medrano MD MSc, [facility] [phone] REASON FOR VISIT Former Stem Cell Encounters Encounter Location Date Provider Diagnosis [facility]- [address] [address] 05/26/2023 Joann Medrano Plan Of Treatment No Information Progress Notes * Louie HUNTaDOB:1955 (68 yo F)Acc No.[id number]:05/26/2023 Patient:?Elyssa HUNT Provider:?Joann Medrano MD MSc :1955???Age:67 Y???Sex:Female D ate:05/26/2023 Address:[facility] [address], [place], [id number] Pcp:Dr Sadie Mccurdy Subjective: * Chief Complaints: * ???1. Former Stem Cell. * Medical History:? Objective: * Vitals:? Assessment: Plan: * Treatment: * Images: Billing Information: * Visit Code:? * Procedure Codes:? * Electronic signature of Annalise Medrano MD MSc, MD on 07/12/2024 at 03:43 PM EST Sign off status: Pending * Provider:?Joann Medrano MD MSc Date:?05/11 Generated for Mervin villatoro/Nicole/eTransmitting on:?07/12/2024 03:43 PM EST
== END 2024-07-12 13:22 | disposition home or self-care (01) ==
PROVIDERS: Visit Provider Orthopaedic Surgery
DX: M17.12 Unilateral primary osteoarthritis, left knee (principal)
CPT/HCPCS: 99213; G2211

== ENCOUNTER → 2024-07-12 12:54 | Outpatient (BNV) | payer MEDICARE, SELFPAY | PROVIDERS: Visit Provider Radiology Diagnostic Radiology | DX: M25.562 Pain in left knee (principal) | CPT/HCPCS: 73562 ==

== ENCOUNTER → 2024-08-15 08:56 | Outpatient (BNVA) | payer MEDICARE, SELFPAY | DX: Z01.818 Encounter for other preprocedural examination (principal) ==

== ENCOUNTER 2024-09-15 08:20 | Outpatient (AMB) | payer MEDICARE, SELFPAY ==
--- NOTE | 2024-09-15 08:30 | MHC.OFFVIS ---
Vital Signs 09/15/24 08:33 Height 5 ft 6 in Weight 185 lb BMI 29.9 Intake Visit Reasons: Pre-Op: L TKA w/ 09/19/24 Intake Note: Elyssa is a 68 year old female who presents today pre-operatively for discussion of their left total knee arthroplasty scheduled for 09/19/24. Consents signed in office today. Allergies amoxicillin [AMOXICILLIN] Allergy (Severe, Verified 09/15/24 08:33) Rash adhesive tape Adverse Reaction (Intermediate, Verified 09/15/24 08:33) Rash Medication List - Last Reconciled 09/15/24 by Ari Gonzales MD abemaciclib 50 mg PO BID albuterol sulfate 90 mcg/actuation 2 puffs inhalation Q4-6H PRN fluticasone propionate 50 mcg/actuation 1 spray intranasal DAILY PRN letrozole 2.5 mg PO DAILY metformin 500 mg PO DAILY paroxetine HCl 10 mg PO BEDTIME walker Folding front wheeled walker [facility] Medical History (Updated 09/15/24 @ 07:39 by Ari Gonzales MD) Arthritis Back pain History of phlebitis (~1989) History of blood transfusion Mild anxiety History of asthma Asymptomatic PVCs Endometrial cancer Seasonal allergies Surgical History (Updated 08/16/24 @ 13:32 by Radha Yu RN) Hx of colonoscopy History of surgery (~1974) History of arthroscopic knee surgery Hx of varicose vein ligation Hx of section Hx of abdominal hysterectomy (~2017) History of laparotomy (02/2020) Social History (Updated 08/16/24 @ 13:54 by Radha Yu RN) Household Members: Spouse Housing: House Are you a primary adult live in caregiver to a significant other at home: No Do you presently have visiting nurse or other home services: No 75 years or older and lives alone: No Patient Tobacco Use Status: Never used Tobacco Assessment & Plan Assessment & Plan Orders: Orders Complete Blood Count Auto Diff Today Z01.818 - Encounter for other preprocedural examination Hemoglobin A1c Today Z01.818 - Encounter for other preprocedural examination Basic Metabolic Panel Today Z01.818 - Encounter for other preprocedural examination Type and Screen Today Z01.818 - Encounter for other preprocedural examination Coding
[2024-09-15 08:33] VITALS: BMI 29.9
--- NOTE | 2024-09-15 08:35 | MHC.OFFVIS ---
Vital Signs 09/15/24 08:33 Height 5 ft 6 in Weight 185 lb BMI 29.9 Intake Visit Reasons: Pre-Op: L TKA w/ 09/19/24 Intake Note: Elyssa is a 68 year old female who presents with complaints of progressively worsening left knee pain. She describes her pain as sharp and severe in nature. Her pain has gotten worse over the last 5 years in spite of continued non operative treatments. She has had injections in the past which gave her minimal relief. She has also done physical therapy exercises which aggravated her pain. She has tried Tylenol and anti-inflammatory medicines which gave her minimal relief. The patient has difficulty walking even short distances because of her pain. At this point her left knee pain is interfering with her activities of daily living and her ability to sleep well through the night. Allergies amoxicillin [AMOXICILLIN] Allergy (Severe, Verified 09/15/24 08:33) Rash adhesive tape Adverse Reaction (Intermediate, Verified 09/15/24 08:33) Rash Medication List - Last Reconciled 09/15/24 by Ari Gonzales MD abemaciclib 50 mg PO BID albuterol sulfate 90 mcg/actuation 2 puffs inhalation Q4-6H PRN fluticasone propionate 50 mcg/actuation 1 spray intranasal DAILY PRN letrozole 2.5 mg PO DAILY metformin 500 mg PO DAILY paroxetine HCl 10 mg PO BEDTIME walker Folding front wheeled walker [facility] Medical History Arthritis Back pain History of phlebitis (~1989) History of blood transfusion Mild anxiety History of asthma Asymptomatic PVCs Endometrial cancer Seasonal allergies Surgical History Hx of colonoscopy History of surgery (~1974) History of arthroscopic knee surgery Hx of varicose vein ligation Hx of section Hx of abdominal hysterectomy (~2017) History of laparotomy (02/2020) Social History Household Members: Spouse Housing: House Are you a primary post acute care nurse to a significant other at home: No Do you presently have visiting nurse or other home services: No 75 years or older and lives alone: No Patient Tobacco Use Status: Never used Tobacco Physical Exam Vital Signs: BMI result Body Mass Index 29.9 Const Other: Well-nourished well-developed very friendly female awake alert and oriented x3 in no acute distress Extrem Other: Bilateral lower extremity examination shows good capillary refill, no skin lesions noted, normal sensation light touch Left knee examination shows a minimal effusion, palpable crepitus with range of motion, pain with range of motion, range of motion from -3 degrees to 115 degrees, no instability Results Reviewed Results Reviewed: X-rays of the patient's left knee show severe joint space narrowing with grade 4 [id number] arthritis, subchondral sclerosis, osteophyte formation, no acute Assessment & Plan Assessment & Plan (1) Arthritis of left knee: Code(s): M17.12 - Unilateral primary osteoarthritis, left knee Category: Medical Plan Ms. Romero presents with progressively worsening left knee pain due to end-stage degenerative joint disease. I had a lengthy discussion with the patient regarding the treatment options. At this point she has failed continued non operative treatments. The risks and benefits of left total knee replacement surgery were discussed at length with the patient. The patient wishes to proceed with surgery. branch services manager will be consulted following her surgery for home physical therapy and nursing. The patient will follow-up as instructed. Feel free to call me at any time should questions regarding her orthopedic management arise. I spent 22 minutes in reviewing the patient's records and imaging studies, seeing the patient and documenting in the medical record. Orders: Orders Hemoglobin A1c Today Z01.818 - Encounter for other preprocedural examination Type and Screen Today Z01.818 - Encounter for other preprocedural examination Coding Level of Care Code Est Pt Level 3 (75761) Complex EM visit Add On G2211 Diagnoses Arthritis of left knee M17.12
--- OUTSIDE RECORDS SUMMARY | 2024-09-15 08:39 | XMS_ITS | Patient Health Record ---
Author Organization [facility] Address [address] [facility] [facility] [place] [address] Care Team Providers Care Remote Sensing Surveyor Name Role Phone Dr Sadie Mccurdy Primary Care Provider Mikal Medrano MD MSc, [facility] Unavailable [phone] Allergies Allergen (clinical drug ingredient) Drug/Non Drug [...] Turmeric 500 MG as directed Orally Not-Taking Patriot 3 1000 MG 1 capsule Orally Onc [...] Problem Status W/U Status Risk Notes Problem [id number] Primary osteoarthritis of knees, bilateral (M17.0) Active confirmed Plan Of Treatment No Information Insurance Providers Payer Name Payer Address Payer Phone Subscriber Number Group Number Insured Name Patient Relationship to Insured Coverage Start Date Coverage End Date MEDICARE NGS [address] [place] [phone] [id number] Elyssa Romero Self - patient is the insured [place] [address] [place], [place] [id number] Elyssa Romero Self - patient is the insured Medical (General) History Medical History History ICD Code Cancer- uterine s/p hysterec frederic July 2017 with clear margins and no lymph node involvement. 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 States that 06/15/23 she has had a clean CT scan without evidence of recurrent ca HyperCholesterolemia asthma Bronchitis Anxiety disorder Depression Varicose veins Surgical History Surgery Date(Month/Year) Hysterectomy for endometrial cancer- in situ, no lymph node involvement. 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
--- OUTSIDE RECORDS SUMMARY | 2024-09-15 08:39 | XMS_ITS ---
Author Organization [facility] Address [address] [facility] [address] [place] [address] Care Team Providers Care Operational Intelligence Analyst Name Role Phone Dr Sadie Mccurdy Primary Care Provider Mikal Medrano MD MSc, [facility] Unavailable [phone] Nancy Hollye Unavailable [phone] REASON FOR VISIT Knee pain Encounters Encounter Location Date Provider Diagnosis [facility] [address] [facility] [place] [address] 05/26/2023 Nancy Holley Plan Of Treatment No Information Progress Notes * Louie HUNTaDOB:1955 (68 yo F)Acc No.[id number]:05/26/2023 Progress Note Patient:?Elyssa HUNT Provider:?Nancy Martinez NP :1955???Age:67 Y???Sex:Female D ate:05/26/2023 Address: [address], [place], [id number] Pcp:Dr Sadie Mccurdy Subjective: * Chief Complaints: * ???1. Knee pain. * Medical History:? Objective: * Vitals:? Assessment: Plan: * Treatment: * Images: Billing Information: * Visit Code:? * Procedure Codes:? * Electronic signature of Yaw Holley NP on 09/15/2024 at 08:39 AM EDT Sign off status: Pending * Provider:?Nancy Martinez NP Date:?05/26 Generated for Mervin villatoro/Nicole/eTransmitting on:?09/15/2024 08:39 AM EDT
--- OUTSIDE RECORDS SUMMARY | 2024-09-15 08:39 | XMS_ITS ---
Author Organization [facility] Address [address] [facility] [address] [place] [address] Care Team Providers Care Financial Services Specialist Name Role Phone Dr Sadie Mccurdy Primary Care Provider Mikal Medrano MD MSc, [facility] Unavailable [phone] Allergies Allergen (clinical drug ingredient) Drug/Non Drug [...] Turmeric 500 MG as directed Orally Not-Taking Travelers Rest 3 1000 MG 1 capsule Orally Onc [...] Date Provider Diagnosis [facility] [address] [place] [address] 06/15/2023 Joann Medrano Primary osteoarthrit is of [...] She will ask the research team and special investigator if Stem Regen is allowed. Details and ingredients are available at our front office representative and online It was a pleasure seeing [...] She will ask the research team and special investigator if Stem Regen is allowed. Details and ingredients are available at our front office representative and online It was a pleasure seeing Elyssa today and we celebrated with her the clean scan. Progress Notes * Louie HUNTaDOB:1955 (67 yo F)Acc No.[id number]:06/15/2023 Patient:?Elyssa HUNT Provider:?Joann Medrano MD MSc :1955???Age:67 Y???Sex:Female D ate:06/15/2023 Address:[address] [facility], [id number] Pcp:Dr Sadie Mccurdy Subjective: * Chief Complaints: * ???Bilateral knee pain * HPI: ???Pain Management:? Elyssa is well known to this office for orthobiologic treatment of bilateral knees in 2019 with good effect - she was able to continue skiing. ?She is s/p hysterectomy for uterine ca and was cleared for above procedure by her multimedia services manager oncologist. She has had a recurrence of metatstatic uterine ca and is s/p abdominal surgery , chemotherapy and is participating in a study at [facility]. ?She would like to take supplements that [...] improved by?sitting (not weight bearing), wearing an coremaker machine knee brace, heat, ice, NSAIDS all provide [...] include?physical therapy 2 years ago 07/02 helpful, care program resident 2011 not helpful, psychological support 2010, , [...] cancer- in situ, no lymph node involvement. 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 See note for details. Discussed treatment options. * Images: * Sign off status: Completed true * Provider:?Joann Medrano MD MSc Date:?09/2023 Generated for Mervin villatoro/Nicole/Haileyitting on:?09/15/2024 08:39 AM EDT History and Physical Notes * [...] sitting (not gabriel ght bearing), wearing an coremaker machine knee brace, heat, ice, NSAIDS all provide good relief The pain is aggravated by walking, lifti ng, standing, skiing, stairs, in one postion for too long Non pharmacologic approaches that have been utilized include physical therapy 2 years ago 07/02 helpfu l, care program resident 2011 not helpful, psychological support 2010, , [...]
--- OUTSIDE RECORDS SUMMARY | 2024-09-15 08:39 | XMS_ITS ---
Author Organization [facility] Address [address] [facility] [address] [place] [address] Care Team Providers Care Poultry Processing Supervisor Name Role Phone Dr Sadie Mccurdy Primary Care Provider Mikal Medrano MD, MSc, Joann Melara [phone] REASON FOR VISIT Former Stem Cell Encounters Encounter Location Date Provider Diagnosis [facility] [address] [facility] [address] [place] [address] 05/26/2023 Joann Medrano Plan Of Treatment No Information Progress Notes * Louie HUNTaDOB:1955 (68 yo F)Acc No.[id number]:05/26/2023 Patient:?Elyssa HUNT Provider:?Joann Medrano MD MSc :1955???Age:67 Y???Sex:Female D ate:05/26/2023 Address:[address], [facility], [place], [id number] Pcp:Dr Sadie Mccurdy Subjective: * Chief Complaints: * ???1. Former Stem Cell. * Medical History:? Objective: * Vitals:? Assessment: Plan: * Treatment: * Images: Billing Information: * Visit Code:? * Procedure Codes:? * Electronic signature of Annalise Medrano MD MSc, MD on 09/15/2024 at 08:38 AM EDT Sign off status: Pending * Provider:?Joann Medrano MD MSc Date:?05/11 Generated for Printi ng/Faxing/eTransmitting on:?09/15/2024 08:38 AM EDT
== END 2024-09-15 08:45 | disposition home or self-care (01) ==
LOC: HO.HOS 08:20
PROVIDERS: Visit Provider Orthopaedic Surgery
DX: M17.12 Unilateral primary osteoarthritis, left knee (principal)
CPT/HCPCS: 99214; G2211

== ENCOUNTER → 2024-09-15 08:20 | Outpatient (BNVA) | payer MEDICARE, SELFPAY | PROVIDERS: Visit Provider Orthopaedic Surgery | DX: Z01.818 Encounter for other preprocedural examination (principal); M17.12 Unilateral primary osteoarthritis, left knee | CPT/HCPCS: 99212 ==

== ENCOUNTER 2024-09-19 06:58 | Day surgery (SDC) | payer MEDICARE, SELFPAY ==
--- OUTSIDE RECORDS SUMMARY | 2024-07-20 10:30 | XMS_ITS ---
Author Organization [facility] Address [address] [place] [address] Care Team Providers Care Scallop Cutter Name Role Phone Dr Sadie Mccurdy Primary Care Provider Mikal Medrano MD MSc, Joann Unavailable [phone] Allergies Allergen (clinical drug ingredient) Drug/Non Drug [...] Turmeric 500 MG as directed Orally Not-Taking [place]wood 3 1000 MG 1 capsule Orally Onc [...] Date Provider Diagnosis [facility] [address] [place] [address] 06/15/2023 Joann Medrano Primary osteoarthrit is of [...] She will ask the research team and tax investigator if Stem Regen is allowed. Details and ingredients are available at our senior front end web developer and online It was a pleasure seeing [...] She will ask the research team and tax investigator if Stem Regen is allowed. Details and ingredients are available at our senior front end web developer and online It was a pleasure seeing Elyssa today and we celebrated with her the clean scan. Progress Notes * Louie HUNTaDOB:1955 (67 yo F)Acc No.[id number]:06/15/2023 Patient:?Elyssa HUNT Provider:?Joann Medrano MD MSc :1955???Age:67 Y???Sex:Female D ate:06/15/2023 Address:[facility] [address], [facility] [id number] Pcp:Dr Sadie Mccurdy Subjective: * Chief Complaints: * ???Bilateral knee pain * HPI: ???Pain Management:? Elyssa is well known to this office for orthobiologic treatment of bilateral knees in 2019 with good effect - she was able to continue skiing. ?She is s/p hysterectomy for uterine ca and was cleared for above procedure by her radiologic technician oncologist. She has had a recurrence of metatstatic uterine ca and is s/p abdominal surgery , chemotherapy and is participating in a study at [facility] [place]. ?She would like to take supplements that [...] improved by?sitting (not weight bearing), wearing an fiberglass autobody repairer knee brace, heat, ice, NSAIDS all provide [...] include?physical therapy 2 years ago 07/02 helpful, healthcare administration intern 2011 not helpful, psychological support 2010, , [...] cancer- in situ, no lymph node involvement. OPTICAL INSTRUMENT ASSEMBLY SUPERVISOR oncologist Orin Tucker [phone] 07/26vein ligation C/S x3 excision of benign [...] Tablet 1 tablet Orally Once a day Birnamwood 3 1000 MG Capsule 1 capsule Orally [...] 1 tablet Orally Once a day Not-Taking [place]wood 3 1000 MG Capsule 1 capsule Orally [...] time was 41 minutes, including chart review, [id number] time with pt, discussion of treatment plan, counseling, coordination of care and documenting above in chart. See note for details. Discussed treatment options. * Images: * Sign off status: Completed true * Provider:?Joann Medrano MD MSc Date:?09/2023 Generated for Printrichard villatoro/Nicole/Andreassmitting on:?07/20/2024 10:30 AM EDT History and Physical Notes * HPI (History [...] sitting (not gabriel ght bearing), wearing an fiberglass autobody repairer knee brace, heat, ice, NSAIDS all provide good relief The pain is aggravated by walking, lifti ng, standing, skiing, stairs, in one postion for too long Non pharmacologic approaches that have been utilized include physical therapy 2 years ago 07/02 helpfu l, healthcare administration intern 2011 not helpful, psychological support 2010, , [...]
--- OUTSIDE RECORDS SUMMARY | 2024-07-20 10:30 | XMS_ITS | Encounter Summary ---
Author Organization [facility] [place] [address] Care Team Providers Care Healthcare Insurance Sales Agent Name Role Phone Sadie Mccurdy DO Primary Care Provider [phone] Encounter Details Date Type Department Care Team (Late st Contact Info) Description 07/13/2024 Notes Only Hematology [place] [address] Nabeel Ocasio, RN Social History Tobacco Use [...] 9:22 AM EST RESEARCH NURSE TELEPHONE NOTE U04715: A Phase III Randomized, Double-Blind, Multicenter Study [...] call again. Pt will continue on study C99486 in survival per protocol. Patient being followed at [facility], Will continue to contact for survival and questionnaires per protocol. documented in this encounter Plan of Treatment Not on file documented as of this encounter Visit Diagnoses Not on filedocumented in this encounter Care Teams Healthcare Insurance Sales Agent Relationship Specialty Start Date End Date Sadie Mccurdy DO [address] [place] [address] PCP - General Internal Medicine 10/28/18 documented as of this encounter
--- OUTSIDE RECORDS SUMMARY | 2024-07-20 10:30 | XMS_ITS ---
Author Organization [facility] Address [address] [place] [address] Care Team Providers Care Sports Apparel Internship Name Role Phone Dr Sadie Mccurdy Primary Care Provider Mikal Medrano MD MSc, Joann Unavailable [phone] Nancy Holley Unavailable [phone] REASON FOR VISIT Knee pain Encounters Encounter Location Date Provider Diagnosis [facility] [address] [address] 05/26/2023 Nancy Holley Plan Of Treatment No Information Progress Notes * Louie HUNTaDOB:1955 (68 yo F)Acc No.[id number]:05/26/2023 Progress Note Patient:?Elyssa HUNT Provider:?Nancy Martinez NP :1955???Age:67 Y???Sex:Female D ate:05/26/2023 Address:[facility] [address], [place], [id number] Pcp:Dr Sadie Mccurdy Subjective: * Chief Complaints: * ???1. Knee pain. * Medical History:? Objective: * Vitals:? Assessment: Plan: * Treatment: * Images: Billing Information: * Visit Code:? * Procedure Codes:? * Electronic signature of Yaw Holley NP on 07/20/2024 at 10:30 AM EDT Sign off status: Pending * Provider:?Nancy Martinez NP Date:?05/26 Generated for Mervin villatoro/Fainocenciag/eTransmitting on:?07/20/2024 10:30 AM EDT
--- OUTSIDE RECORDS SUMMARY | 2024-07-20 10:31 | XMS_ITS | Clinical Summary ---
Author Organization [facility] Address [facility] [place] [address] Care Team Providers Care Nitrocellulose Operator Name Role Phone Sadie Mccurdy DO Primary Care Provider [phone] Allergies Active Allergy Reactions Criticality Noted Date [...] 07/13/2024 Notes Only Hematology and Oncology at [facility] [place] [address] Nabeel Ocasio RN from Last 3 Months Immunizations Name Administration Dates Next Due Covid-19 Monovalent (Moderna Spikevax) 12yrs+ (5721-1848) 08/23/2020,07/26/2020 Social History Tobacco Use Types Packs/Day [...] 01/10/2020, 01/10/2020 Medical Devices Explanted Type Area Emergency Services Director Device Identifier Shelf Expiration Date Model / Serial / Lot Port Infusion 8fr Cath Power Lp Ct Plastic Dignity [id number])-04/11/2020 Implanted:Qty : 1 on 04/11/2020 by Candie Centeno APRN Explanted:Qty : 1 on 11/06/2020 by Louie Man MD IMPLANTS Chest Wall [employer] - MEDCOMP IN [id number] / / [id number] Description:8FR MINI POWER P ORT IN RIGHT [...] Screening: January 27, 2024 - Exam #: [id number] Bilateral CC and MLO view(s) were taken. Technologist: TONIO Moser RT (R) (M) (ARRT) Prior study comparison: January 14, 2023, bilateral MA mammogram digital screening performed at [facility]. December 05, 2021, bilateral MA mammogram digital screening performed at [facility]. ??December 04, 2020, bilateral MA mammogram digital screening performed at [facility]. The breast tissue is heterogeneously dense, which [...] Screening: January 27, 2024 - Exam #: [id number] Bilateral CC and MLO view(s) were taken. Technologist: TONIO Moser RT (R) (M) (ARRT) Prior study comparison: January 14, 2023, bilateral MA mammogram digital screening performed at [facility]. December 05, 2021, bilateral MA mammogram digital screening performed at [facility]. December 04, 2020, bilateral MA mammogram digital screening performed at [facility]. The breast tissue is heterogeneously dense, which [...] EDT) Glucose 88 65 - 199 mg/dL [facility] Comment:Diabetes: >=200 mg/d L plus symptoms Blood Urea Nitrogen 12 8 - 18 mg/dL [facility] Creatinine 0.76 0.70 - 1.20 mg/dL [facility] Sodium 141 135 - 145 mmol/L [facility] Potassium 4.1 3.5 - 5.0 mmol/L [facility] Comment: Please note: ??Patients with WBC >100,000 may have falsely elevated Potassium levels. ??For accurate Potassium quantification in these patients send serum separator tube (gold top) for subsequent determinations. ??Contact the Clinical Chemistry Laboratory if there are any questions. Chloride 106 98 - 107 mmol/L [facility] Carbon Dioxide 25 22 - 31 mmol/L [facility] Anion Gap 10 5 - 15 mmol/L [facility] Calcium 9.6 8.5 - 10.5 mg/dL [facility] Protein, Total 7.0 6.1 - 8.0 g/dL [facility] Albumin 4.6 3.2 - 5.2 g/dL [facility] Aspartate Aminotransferase 18 0 - 30 unit/L [facility] Alanine Aminotransferase 18 0 - 30 unit/L [facility] Alkaline Phosphatase 45 35 - 105 unit/L [facility] Bilirubin, Total 0.5 0.2 - 1.3 mg/dL [facility] Est Glomerular Filtration Rate 83 >=60 mL/min/1. 73 m?? [facility] Comment: This patient? s [...] In Lab Konrad Maldonado MD CHEMISTRY ORDERABLES [facility] [address] * COLONOSCOPY (01/10/2020 3:33 PM EDT) COLONOSCOPY [facility] Endoscopy Procedure Date: 01/10/2020 3:33 PM ? Patient Name: Elyssa Romero ? Date of : 1955 ? Age: 64 ? Order #: [id number] ? Instrument Name: [id number] ? Procedure: ? Colonoscopy Indications: ? High [...] preparation was evaluated using ? the BBPS ([place] Bowel Preparation ? Scale) with scores of: [...] individual at high risk CPT copyright 2019 [employer]. All rights reserved. The codes documented in this report are preliminary and upon brine tank tender review may be revised to meet current [...] Documents on File Type Date Recorded Patient Rate Marker Expl anation Advance Directives and Livin g [...] Status decision made by: Patient Care Teams Nitrocellulose Operator Relationship Specialty Start Date End Date Sadie Mccurdy DO [address] [place] [address] PCP - General Internal Medicine 10/28/18
--- OUTSIDE RECORDS SUMMARY | 2024-07-20 10:31 | XMS_ITS ---
Author Organization [facility] Address [facility] [place] [address] Care Team Providers Care Gang Worker Name Role Phone Sadie Mccurdy DO Primary Care Provider [phone] Active Problems Problem Noted Date Diagnosed Date Osteoarthritis of both knees 11/06/2020 Chemotherapy-induced thrombocytopenia 07/17/2020 Recurrent carcinoma of endometrium 03/09/2020 Mild intermittent asthma 10/28/2018 Recurrent major depressive disorder, in partial remission 10/28/2018 Elevated cholesterol 10/28/2018 Current Oncology Plans No current plan information found. Past Plans ADULT INVESTIGATIONAL Plan Name Start Date Discontinue Date Treatment Medications Discontinue Reason Plan Provider Cycles [id number] AMB - (CARBOplatin / PACLitaxel / [id number] DOSTARLIMAB OR PLACEBO) 020 03/06/2022 CARBOplatin (Paraplatin) in 150 mL [id number] dostarlimab or placebo infusionPACLitaxeL (Taxol) in Non-PVC sodium chloride 0.9% 250 mL infusion Therapy Complete Konrad Maldonado MD 13 of 14 cycles started Mediport Maintenance Plan Name Start Date Discontinue Date Treatment Medications Discontinue Reason Plan Provider DH MEDIPORT ADMINISTRATION 06/05/2020 12/02/2023 No medications scheduled. Therapy Complete - Radiation Treatments * No radiation treatments are documented for this patient in [facility]. Treatments may have been administered in another system. Lifetime Dose Tracking * Chemical Lifetime Dose Automatic Entry Manual Entr y DLP (Dose Length Product) 2,601 mGy-cm 2,601 mGy-cm 0 mGy-cm CTDI (CT Dose Index) Min 36.91 mGy 36.91 mGy 0 m Gy CTDI (CT Dose Index) Max 36.91 mGy 36.91 mGy 0 m Gy
--- OUTSIDE RECORDS SUMMARY | 2024-07-20 10:32 | XMS_ITS ---
Author Organization [facility] Address [address] [place] [address] Care Team Providers Care Jigger Crown Pouncing Machine Operator Name Role Phone Dr Sadie Mccurdy Primary Care Provider Mikal Medrano MD MSc, [facility] [phone] REASON FOR VISIT Former Stem Cell Encounters Encounter Location Date Provider Diagnosis [facility] [address] [address] 05/26/2023 Joann Medrano Plan Of Treatment No Information Progress Notes * Louie HUNTaDOB:1955 (68 yo F)Acc No.[id number]:05/26/2023 Patient:?Elyssa HUNT Provider:?Joann Medrano MD MSc :1955???Age:67 Y???Sex:Female D ate:05/26/2023 Address:[facility] [address], [place], [id number] Pcp:Dr Sadie Mccurdy Subjective: * Chief Complaints: * ???1. Former Stem Cell. * Medical History:? Objective: * Vitals:? Assessment: Plan: * Treatment: * Images: Billing Information: * Visit Code:? * Procedure Codes:? * Electronic signature of Annalise Medrano MD MSc, MD on 07/20/2024 at 10:31 AM EDT Sign off status: Pending * Provider:?Joann Medrano MD MSc Date:?05/11 Generated for Mervin ng/Fainocenciag/eTransmitting on:?07/20/2024 10:31 AM EDT
[2024-08-16 13:34] VITALS: BP 135/71; PULSE 68; RESP 16; O2SAT 98; BMI 30.7
--- NOTE | 2024-08-16 13:58 | P.CONAN_ITS ---
Documented by User: Eliza Santana NP 09/16/24 12:40 HPI - Anesthesia Eval Consult details Narrative: 68yo F for Left Knee Replacement Total, 09/19/24 No recent illness No CP/SOB with flight of stairs. Only limited by knee pain Endometrial CA: Follows with Kimberlee Arthur and karla to proceed with ortho surgery. On PO tx protocol (metformin as part of tx, no DM). Undetectable for 15 months. Asthma: Stable > 1 year without need for albuterol PMFSH Active Problems Active Problems: All Active Problems Arthritis of left knee (Acute) Left knee pain (Acute) Past Medical History Medical History Bilateral cataracts Arthritis Back pain History of phlebitis (~1989) History of blood transfusion Mild anxiety History of asthma Asymptomatic PVCs Endometrial cancer Seasonal allergies Family History Family history of problems with anesthesia: No Surgical History Surgical History History of surgery Hx of excision of mass (03/09/20) History of robot-assisted laparoscopic hysterectomy (2017) Hx of colonoscopy History of surgery (~1974) History of arthroscopic knee surgery Hx of varicose vein ligation Hx of section History of laparotomy (02/2020) History of Problems with Anesthesia: No Social History Social History Household Members: Spouse Housing: House Are you a primary healthcare corporate account director to a significant other at home: No Do you presently have visiting nurse or other home services: No Patient Tobacco Use Status: Never used Tobacco e-Cigarette/Vaping Use: Never Used Use of substances other than those prescribed or required for medical reasons: No Have you been hit, kicked, punched, or otherwise hurt by someone within the past year? If so, by whom?: No Are you DNR?: No Advance Directives: No (will look for and bring if available) Advance Directives Information Provided: Yes Advance Directives on File: No Patient : No Poor oral hygiene: No Meds Allergies Allergy/AdvReac Type Severity Reaction Status Date / Time amoxicillin [AMOXICILLIN] Allergy Severe Rash Verified 09/15/24 08:33 adhesive tape AdvReac Intermediate Rash Verified 09/15/24 08:33 Home Medications ?Medication ?Instructions ?Recorded ?Confirmed ?Last Taken ?Type abemaciclib 50 mg tablet 50 mg PO BID 07/12/24 09/15/24 Unknown History fluticasone propionate 50 1 spray intranasal DAILY PRN 07/12/24 09/15/24 Unknown History mcg/actuation nasal Allergy Symptoms spray,suspension letrozole 2.5 mg tablet 2.5 mg PO DAILY 07/12/24 09/15/24 09/19/24 History metformin 500 mg tablet 500 mg PO DAILY 07/12/24 09/15/24 Unknown History paroxetine HCl 10 mg tablet 10 mg PO BEDTIME 07/12/24 09/15/24 Unknown History albuterol sulfate 90 mcg/actuation 2 puff inhalation Q4-6H PRN 08/16/24 09/15/24 Unknown History aerosol inhaler Shortness Of Breath Or Wheezing Exam Height,Weight and Vital Signs: Height 5 ft 6 in Weight 86.3 kg Last Vital Signs Pulse 68 08/16/24 13:34 Resp 16 08/16/24 13:34 BP 135/71 08/16/24 13:34 Pulse Ox 98 08/16/24 13:34 O2 Del Method Room Air 08/16/24 13:34 Pertinent Lab Results Pertinent Lab Results: Lab Results 08/16/24 09/15/24 09/15/24 Range/Units 14:15 08:58 09:08 Estimat Average Glucose 105 mg/dL Hemoglobin A1c % 5.3 (<6.0) % Nasal Screen MRSA (PCR) NEGATIVE (Negative) Nasal S. aureus Screen NEGATIVE (Negative) Nasal MRSA/S.aureus Interp SEE NOTE Blood Type A Positive Antibody Screen NEGATIVE CBC and CMP 09/2024 from outside facility grossly nml Narrative Narrative: EKG 03/2024 SR, occ PVCs Low volt QRS Airway Mallampati Class: II TM Dist: >3cm Neck ROM: Full Loose/Missing/Broken Teeth: No (Implants in molars) Heart: RRR Lungs: CTAB Assessment and Plan Assessment Anesthesia Assessment: Anesthesia Plan Discussed and PAT Visit Final Anesthetic Review Family History of Problems with Anesthesia: No History of Problems with Anesthesia: No Documented by User: Debbie Maya MD 09/19/24 09:39 [facility] Past Medical History Medical History Bilateral cataracts Arthritis Back pain History of phlebitis (~1989) History of blood transfusion Mild anxiety History of asthma Asymptomatic PVCs Endometrial cancer Seasonal allergies Surgical History Surgical History History of surgery Hx of excision of mass (03/09/20) History of robot-assisted laparoscopic hysterectomy (2017) Hx of colonoscopy History of surgery (~1974) History of arthroscopic knee surgery Hx of varicose vein ligation Hx of section History of laparotomy (02/2020) Social History Social History Household Members: Spouse Housing: House Are you a primary healthcare corporate account director to a significant other at home: No Do you presently have visiting nurse or other home services: No Patient Tobacco Use Status: Never used Tobacco e-Cigarette/Vaping Use: Never Used Use of substances other than those prescribed or required for medical reasons: No Have you been hit, kicked, punched, or otherwise hurt by someone within the past year? If so, by whom?: No Are you DNR?: No Advance Directives: No (will look for and bring if available) Advance Directives Information Provided: Yes Advance Directives on File: No Patient : No Poor oral hygiene: No Meds Allergies Allergy/AdvReac Type Severity Reaction Status Date / Time amoxicillin [AMOXICILLIN] Allergy Severe Rash Verified 09/15/24 08:33 adhesive tape AdvReac Intermediate Rash Verified 09/15/24 08:33 Home Medications ?Medication ?Instructions ?Recorded ?Confirmed ?Last Taken ?Type abemaciclib 50 mg tablet 50 mg PO BID 07/12/24 09/15/24 Unknown History fluticasone propionate 50 1 spray intranasal DAILY PRN 07/12/24 09/15/24 Unknown History mcg/actuation nasal Allergy Symptoms spray,suspension letrozole 2.5 mg tablet 2.5 mg PO DAILY 07/12/24 09/15/24 09/19/24 History metformin 500 mg tablet 500 mg PO DAILY 07/12/24 09/15/24 Unknown History paroxetine HCl 10 mg tablet 10 mg PO BEDTIME 07/12/24 09/15/24 Unknown History albuterol sulfate 90 mcg/actuation 2 puff inhalation Q4-6H PRN 08/16/24 09/15/24 Unknown History aerosol inhaler Shortness Of Breath Or Wheezing Assessment and Plan Assessment Anesthesia Assessment: Chart Reviewed Final Anesthetic Review NPO: Yes ASA Class: III Final Preanesthetic Review: No Changes in Pt Med Stat, Meds/Allgs Chart Reviewed, Consent Obtained/Reviewed and Anes Risks/Benef Reviewed Patient Risk: Intermediate Procedure Risk: Intermediate Anesthetic Plan Anesthetic Plan: MAC:, Spinal and Regional Block Disposition: Standard PACU
[2024-08-16 16:04] LABS: MRSA Nasal PCR NEGATIVE (Negative); SA Nasal PCR NEGATIVE (Negative)
[2024-09-15 09:39] LABS: Estimated Average Glucose 105 mg/dL; Hemoglobin A1C 111.3244 umol/L; Hemoglobin A1c % 5.3 % (<6.0)
[2024-09-19] VITALS (9 sets, daily range): BP systolic 90–137; BP diastolic 48–73; PULSE 61–71; RESP 14–20; TEMP 36.1–37.4; O2SAT 94–99; BMI 30.8
[2024-09-19] MEDS: Lactated Ringers 1,000 ML 100 ML IVCONT ×2 (08:00→13:01)
--- NOTE | 2024-09-19 12:18 | PM.IMCN ---
History of Present Illness Data of Consult Service Date: 09/19/24 Primary Care Provider: Nonstaff Physician HPI Reason for consult: dm, endometrial ca 68F PMH, OA, endometrial cancer, DM, mood disorder presented for elective left knee arthroplasty. medical consult for management of comorbid conditions. patient has no active complaints Review of Systems Review of Systems: Yes all other systems are reviewed and are negative [facility] Medical History Bilateral cataracts Arthritis Back pain History of phlebitis (~1989) History of blood transfusion Mild anxiety History of asthma Asymptomatic PVCs Endometrial cancer Seasonal allergies Surgical History History of surgery Hx of excision of mass (03/09/20) History of robot-assisted laparoscopic hysterectomy (2017) Hx of colonoscopy History of surgery (~1974) History of arthroscopic knee surgery Hx of varicose vein ligation Hx of section History of laparotomy (02/2020) Social History Household Members: Spouse Housing: House Are you a primary managed care liaison to a significant other at home: No Do you presently have visiting nurse or other home services: No Patient Tobacco Use Status: Never used Tobacco e-Cigarette/Vaping Use: Never Used Use of substances other than those prescribed or required for medical reasons: No Have you been hit, kicked, punched, or otherwise hurt by someone within the past year? If so, by whom?: No Are you DNR?: No Advance Directives: No (will look for and bring if available) Advance Directives Information Provided: Yes Advance Directives on File: No Patient : No Poor oral hygiene: No Meds Allergies Allergy/AdvReac Type Severity Reaction Status Date / Time amoxicillin [AMOXICILLIN] Allergy Severe Rash Verified 09/15/24 08:33 adhesive tape AdvReac Intermediate Rash Verified 09/15/24 08:33 Active Medications: Current Medications Acetaminophen (Acetaminophen 325 Mg Tablet) 650 mg PO Q6H PRN PRN Reason: Pain, Mild 1-3,fever,headache Albuterol Sulfate (Albuterol Sulfate 90 Mcg 8 Gm Inhaler) 2 puff INHALE Q4-6H PRN PRN Reason: Shortness Of Breath Or Wheezing Calcium Carbonate (Calcium Carbonate 750 Mg Tab.Chew) 750 mg PO Q4H PRN PRN Reason: Heartburn Celecoxib (Celecoxib 200 Mg Capsule) 200 mg PO BID [facility] Docusate Sodium (Docusate Sodium 100 Mg Capsule) 100 mg PO BID [facility] Enoxaparin Sodium (Enoxaparin Sodium 40 Mg/0.4 Ml Syringe) 40 mg SUBCUT Q24H TOÑO Fentanyl (Fentanyl Citrate/Pf 100 Mcg/2 Ml Vial) 25 mcg IVPUSH Q5M PRN PRN Reason: Pain, Moderate to Severe (Pain Scale 4-10) Stop: 09/19/24 15:39 Fluticasone Propionate (Fluticasone Propionate Nasal 16 Gm [place]) 1 spray NOSTRIL-B DAILY PRN PRN Reason: Allergy Symptoms Gabapentin (Gabapentin 100 Mg Capsule) 100 mg PO BEDTIME [facility] Hydromorphone HCl (Hydromorphone Hcl 0.5 Mg/0.5 Ml Syringe) 0.25 mg IVPUSH Q4H PRN; Protocol PRN Reason: Pain, Severe (Pain Scale 7-10) Hydromorphone HCl (Hydromorphone Hcl 0.5 Mg/0.5 Ml Syringe) 0.5 mg IVPUSH Q4H PRN; Protocol PRN Reason: Pain, Severe (Pain Scale 7-10) Lactated Ringer's (Lr) 1,000 mls @ 100 mls/hr IVCONT .Q10H [facility] Clindamycin Phosphate (Cleocin) 900 mg in 50 mls @ 50 mls/hr IV Q8H [facility] Stop: 09/20/24 01:00 Letrozole (Letrozole 2.5 Mg Tablet) 2.5 mg PO DAILY [facility] Magnesium Hydroxide (Milk Of Magnesia 30 Ml Oral.Susp) 30 ml PO DAILY PRN PRN Reason: Constipation Melatonin (Melatonin 3 Mg Tablet) 6 mg PO BEDTIME PRN PRN Reason: Insomnia Metformin HCl (Metformin Hcl 500 Mg Tablet) 500 mg PO DAILY [facility] Methocarbamol (Methocarbamol 500 Mg Tablet) 500 mg PO TID [facility] Naloxone HCl (Naloxone Hcl 0.4 Mg/Ml Vial) 0.04 mg IVPUSH Q5M PRN PRN Reason: Excessive sedation or RR < 8 Non-Formulary Medication (Abemaciclib) 50 mg PO BID [facility] Ondansetron HCl (Ondansetron Hcl 4 Mg/2 Ml Vial) 4 mg IVPUSH ONCE PRN PRN Reason: Nausea and Vomiting Stop: 09/19/24 15:39 Ondansetron HCl (Ondansetron Hcl 4 Mg/2 Ml Vial) 4 mg IVPUSH Q8H PRN PRN Reason: Nausea and Vomiting Oxycodone HCl (Oxycodone Hcl Immed Release 5 Mg Tablet) 5 mg PO ONCE PRN PRN Reason: Pain, Moderate(Pain Scale 4-6) if no IV Access Stop: 09/19/24 15:39 Oxycodone HCl (Oxycodone Hcl Immed Release 5 Mg Tablet) 5 mg PO Q4H TOÑO Oxycodone HCl (Oxycodone Hcl Er 10 Mg Tab.Er.12h) 10 mg PO BID TOÑO Oxycodone HCl (Oxycodone Hcl Immed Release 5 Mg Tablet) 10 mg PO Q4H PRN PRN Reason: Pain, Severe (Pain Scale 7-10) Paroxetine HCl (Paroxetine Hcl 10 Mg Tablet) 10 mg PO BEDTIME [facility] Sodium Chloride (0.9 % Sodium Chloride Flush 3 Ml Syringe) 3 ml IVFLUSH QSHIFT [facility] Home Medications ?Medication ?Instructions ?Recorded ?Confirmed ?Last Taken ?Type abemaciclib 50 mg tablet 50 mg PO BID 07/12/24 09/15/24 Unknown History fluticasone propionate 50 1 spray intranasal DAILY PRN 07/12/24 09/15/24 Unknown History mcg/actuation nasal Allergy Symptoms spray,suspension letrozole 2.5 mg tablet 2.5 mg PO DAILY 07/12/24 09/15/24 09/19/24 History metformin 500 mg tablet 500 mg PO DAILY 07/12/24 09/15/24 Unknown History paroxetine HCl 10 mg tablet 10 mg PO BEDTIME 07/12/24 09/15/24 Unknown History albuterol sulfate 90 mcg/actuation 2 puff inhalation Q4-6H PRN 08/16/24 09/15/24 Unknown History aerosol inhaler Shortness Of Breath Or Wheezing Physical Exam Vital Signs and Narrative: Vital Signs: Last Vital Signs Temp 97 F 09/19/24 12:15 Pulse 61 09/19/24 12:15 Resp 17 09/19/24 12:15 BP 90/48 L 09/19/24 12:15 Pulse Ox 97 09/19/24 12:15 O2 Del Method Room Air 09/19/24 12:15 BMI result Body Mass Index 30.8 General: AO X 3, no acute distress Resp: CTA bilateral, no accessory muscles used CVS: S1,S2,RRR GI: soft, non tender, non distended Neuro: motor grossly intact, alert Psych: appropriate affect, appropriate insight Assessment and Plan (1) Arthritis of left knee: Status: Acute Plan 68F PMH, OA, endometrial cancer, DM, mood disorder presented for elective left knee arthroplasty DM continue metformin, diabetic diet, monitor pocs last a1c 5.3, ?resolved endometrial cancer continue ademaciclib mood disorder paxil appears medically stable, will sign off, please recall as needed
--- NOTE | 2024-09-19 12:32 | PM.OP ---
Brief Operative Note Date of Service: 09/19/24 Pre-op diagnosis: Left knee degenerative joint disease Post-op diagnosis: same Procedure: Left total knee arthroplasty Implants: Ella Triathlon cemented posterior stabilized total knee arthroplasty with a femoral component size 5 left, tibial component size 4, polyethylene liner size 4 with 13 mm of thickness, an asymmetric patellar component size 29 with 9 mm of thickness Surgeon: Ari Gonzales MD Anesthesia: regional and spinal Was an Employee Benefits Administrator used for this Procedure?: No Employee Benefits Administrator: Mecca Biswas Estimated blood loss (mL): 200 Pathology: other (Bony fragments from the right femur, tibia and patella) Condition: stable Disposition: PACU
--- NOTE | 2024-09-19 12:33 | W.PM.OPN ---
Operative Note Operative Note Date of Service: 09/19/24 Narrative: After the patient was identified as Elyssa Romero and her left knee was initialed by myself the patient was brought to the holding area where a left leg nerve block was performed by the anesthesiologist in routine fashion. The patient was then brought to the operating room where conscious sedation and spinal anesthesia were performed by the anesthesiologist in routine fashion. Because of the patient's allergy to amoxicillin she was given 900 mg of IV clindamycin preoperatively for infection prophylaxis. The patient's left lower extremity was prepped and draped in sterile fashion. A formal time-out was completed. The patient's left knee was placed onto a small bump to produce 30? of knee flexion during exposure. A #10 scalpel blade was used to make a midline incision extending 1 handbreadth proximal and distal to the patella. A second #10 scalpel blade was used to dissect the subcutaneous tissues down to the extensor mechanism. The subcutaneous flaps were maintained as thick as possible. A medial parapatellar arthrotomy was then performed using a #10 scalpel blade. The arthrotomy was begun just medial to the patellar tendon. The arthrotomy was continued 1 cm medial to the patella and then 5 mm into the medial aspect of the quadriceps tendon. The infrapatellar fat pad was partially excised to help with exposure. The soft tissue retinaculum was raised one-half of the way around the medial aspect of the proximal tibia. The patella was everted and the knee was flexed to 90?. There was no injury to the patellar tendon or its insertion onto the tibial tubercle. A drill bit was introduced into the distal aspect of the femur with a starting point 1 cm anterior to the origin of the posterior cruciate ligament. The intramedullary alignment jessie was put into place. The distal alignment guide was set for a 5 degree valgus cut. The distal cutting block was put into place and was held with 4 pins. The intramedullary alignment jessie was removed. Soft tissues were retracted in the distal femoral cut was made using a sagittal saw. The distal aspect of the femur measured to be a size 5 left component. Two drill holes were placed into the distal aspect of the femur marking 3? of external rotation. The distal cutting block was impacted into place and was held with 2 pins. Soft tissues were retracted and the 4 distal femoral cuts were made using a sagittal saw. Final notching and drilling of the distal aspect of the femur were performed in routine fashion. The trial femoral component was impacted into place. The knee was taken through a full range of motion. The patella tracked well. The patella was everted and the knee was flexed to 90?. The trial component was removed and our attention was directed to the proximal tibia. The medial and lateral menisci were removed using a #10 scalpel blade. A small rim of the medial meniscus was left intact to help prevent injury to the medial collateral ligament. A drill bit was then introduced into the proximal tibia with a starting point midway from medial to lateral and one-third of the way posteriorly. The intramedullary alignment jessie was put into place. The proximal tibial cutting guide was placed over the alignment jessie in line with the 2nd toe. The guide was held in place using 3 pins. The intramedullary alignment jessie was removed. Soft tissues were retracted and the proximal tibial cut was made using a sagittal saw. The proximal tibia measured to be a size 4 component. The tibial tray was put into place with a 13 mm liner. The femoral component was impacted into place. The knee was taken through a full range of motion. There was full flexion and full extension. There was no instability with varus or valgus stress testing with the knee in flexion or extension. The patella tracked well with no medially directed force. The rotation of the tibial tray was marked using electrocautery with the knee in extension. The patella was everted and the knee was flexed to 90?. All trial components were removed. The tibial tray was placed onto the proximal tibia in line with the electrocautery khushboo. The tray was held in place using 3 pins. Final broaching of the proximal tibia was performed in routine fashion. The trial liner and trial femoral component were put into place. The knee was brought into extension and our attention was directed to the patella. The patella measured 25 mm in thickness. The patellar resection guide was set for a 10 mm resection. Soft tissues were retracted and the patella cut was made using a sagittal saw. The remaining patella measured 15 mm in thickness. The undersurface of the patella was measured to be a size 29 asymmetric component. Three drill holes were placed into the undersurface of the patella in routine fashion. The trial component was put into place. The knee was taken through a full range of motion. The patella tracked well. The patella was everted and the knee was flexed to 90?. All trial components were removed. The knee was once again brought into extension and placed onto a small bump. The knee joint was irrigated with copious amounts of normal saline solution via pulse lavage while the cement was mixed. The patella was everted and the knee was flexed to 90?. A small amount of cement was placed along the posterior aspects of the tibial and femoral components. Cement was then pressurized into the proximal tibia. The tibial component was impacted into place. Any excess cement was removed. The polyethylene liner was then impacted into place. Cement was then pressurized into the distal aspect of the femur. A small amount of cement was placed into the intramedullary canal to help reduce bleeding. The femoral component was impacted into place. Any excess cement was removed. The knee was then brought into extension. Cement was pressurized into the undersurface of the patella. The patellar component was put into place and was held with a patella clamp. Any excess cement was removed. Once the cement had hardened the patellar clamp was removed. The knee was taken through a full range of motion. There was full flexion and extension. There was no instability with varus or valgus stress testing with the knee in flexion or extension. The patella tracked well with no medially directed force. The knee joint was irrigated with copious amounts of normal saline solution via pulse lavage. Any significant bleeding vessels were coagulated. The patient's left knee was placed onto a small bump. The arthrotomy was closed with #2 Ethibond [id number] interrupted suture as well as #1 Vicryl [id number] interrupted suture. The wound was once again irrigated. The subcutaneous tissues were closed with 0 Vicryl and 2-0 Vicryl interrupted sutures. The skin was closed with skin yanna. Dry sterile dressing and Valeriano bandages were placed over the patient's left knee. The patient was awake and alert. The patient was transferred to the recovery room in stable condition.
[2024-09-19] MEDS: Celecoxib 200 MG CAPSULE PO ×2 (13:02→20:14)
[2024-09-19] MEDS: oxyCODONE HCl Immed Release 5 MG TABLET PO ×3 (13:02→20:13)
[2024-09-19] MEDS: oxyCODONE HCl ER 10 MG TAB.ER.12H PO ×2 (13:02→20:14)
[2024-09-19] MEDS: Docusate Sodium 100 MG CAPSULE PO ×2 (13:03→20:14)
[2024-09-19] MEDS: methocarbamoL 500 MG TABLET PO ×2 (13:03→20:14)
--- NOTE | 2024-09-19 13:56 | PHA.MEDREC ---
Pharmacy Consult ? Medication Reconciliation Pharmacy has reviewed the medication reconciliation completed by nursing.
[2024-09-19] MEDS: Clindamycin Phosphate/D5W 900 MG/50 ML PIGGYBACK 50 MG IV (16:34)
[2024-09-19 16:35] LABS: Glucose, Whole Blood 153 mg/dL (60-115)
[2024-09-19] MEDS: Enoxaparin Sodium 40 MG/0.4 ML SYRINGE SUBCUT (16:35)
[2024-09-19] MEDS: oxyCODONE HCl Immed Release 5 MG TABLET 10 MG PO (18:21)
[2024-09-19] MEDS: Acetaminophen 325 MG TABLET 650 MG PO (18:21)
[2024-09-19] MEDS: PARoxetine HCL 10 MG TABLET PO (20:13)
[2024-09-19] MEDS: Gabapentin 100 MG CAPSULE PO (20:13)
[2024-09-19 20:14] LABS: Glucose, Whole Blood 143 mg/dL (60-115)
[2024-09-20] MEDS: Lactated Ringers 1,000 ML 100 ML IVCONT (00:17)
[2024-09-20] MEDS: oxyCODONE HCl Immed Release 5 MG TABLET PO ×4 (00:18→12:58)
[2024-09-20] MEDS: Clindamycin Phosphate/D5W 900 MG/50 ML PIGGYBACK 50 MG IV (01:45)
[2024-09-20 03:03] VITALS: BP 108/59; PULSE 73; RESP 16; TEMP 37.4; O2SAT 96
[2024-09-20 06:42] LABS: MANUAL DIFF FLAG NO
[2024-09-20 06:49] LABS: Basophils Percent Auto 0.4 % (0-2); Hematocrit 27.1 % (37.0-47.0); Hemoglobin 9.5 g/dl (12.0-16.0); Imm Gran Abs Auto 0.02 X10*3/uL (0.00-0.03); Imm Gran Pct Auto 0.4 % (0.0-0.4); Lymphocytes Absolute Auto 0.8 X10*3/uL (1.2-4.9); Lymphocytes Percent Auto 14.9 % (20-40); Mean Corpuscular HGB Conc 35.1 g/dl (31.0-35.0); Mean Corpuscular Hemoglobin 33.9 pg (27.0-33.0); Mean Corpuscular Volume 96.8 fL (80.0-98.0); Monocytes Absolute Auto 0.5 X10*3/uL (0.1-1.2); Monocytes Percent Auto 8.8 % (2-11); Neutrophils Percent Auto 75.5 % (45-73); Platelet Count 160 X10*3/uL (160-400); White Blood Count 5.2 X10*3/uL (4.8-10.8)
[2024-09-20 07:02] LABS: Anion Gap 13 (12-20); Blood Urea Nitrogen 19 mg/dL (9-16); Calcium 8.6 mg/dL (8.4-10.2); Carbon Dioxide 24 mmol/L (22-29); Chloride 106 mmol/L (96-108); Creatinine Clr Calc Pharmacy 74.8; Estimated Glomerular Filt Rate > 60; Glucose Fasting 125 mg/dL (60-99); Potassium 4.4 mmol/L (3.3-5.1); Sodium 139 mmol/L (135-145)
[2024-09-20 07:26] LABS: Glucose, Whole Blood 128 mg/dL (60-115)
[2024-09-20 07:44] VITALS: BP 128/69; PULSE 72; TEMP 36.6; O2SAT 93
[2024-09-20] MEDS: Docusate Sodium 100 MG CAPSULE PO (08:27)
[2024-09-20] MEDS: Celecoxib 200 MG CAPSULE PO (08:27)
[2024-09-20] MEDS: methocarbamoL 500 MG TABLET PO ×2 (08:27→14:13)
[2024-09-20] MEDS: oxyCODONE HCl ER 10 MG TAB.ER.12H PO (08:27)
[2024-09-20] MEDS: Letrozole 2.5 MG TABLET PO (08:27)
[2024-09-20] MEDS: Clindamycin Phosphate/D5W 900 MG/50 ML PIGGYBACK 100 MG IV (08:28)
--- NOTE | 2024-09-20 10:50 | HO.POSTANES ---
Post Anesthesia Evaluation Post Anesthesia Evaluation Date of Service: 09/20/24 Vital Signs: Vital Signs Temp Pulse Resp BP Pulse Ox O2 Del Method 09/20/24 07:44 97.8 F 72 128/69 93 Room Air 09/20/24 03:03 99.3 F 73 16 108/59 L 96 Room Air 09/19/24 22:54 97.8 F 69 20 114/59 L 94 Room Air Anesthesia: Spinal Mental Status: Awake Pain Control: Satisfactory Nausea/Vomiting: None Hydration: Adequate Anesthesia-Related Issues: No Anes. Related Issues
--- NOTE | 2024-09-20 11:00 | MHC.CM.PN ---
pt lives with has a ride home wikl be going home with vna per pt receommendation and switching to outpt physival therapy after 2 weeks
[2024-09-20 11:22] VITALS: BP 120/61; PULSE 68; TEMP 36.4; O2SAT 97
--- NOTE | 2024-09-20 12:00 | PM.DS ---
DS: Providers Provider Date of Service: 09/20/24 Date of discharge: 09/20/24 Primary care physician: Nonstaff Physician Consults: 09/19/24 12:08 Consult to Hospitalist Routine Comment: Consulting Provider[place] [facility] [facility] Reason For Exam: Routine medical managment - DM DS: Diagnosis Discharge Diagnosis (1) Arthritis of left knee: Status: Acute DS: Summary Hospital Course Hospital Course: The patient underwent a successful left total knee arthroplasty on 09/19/[address] Gonzales , was transferred to PACU and then to the floor to recover. During their stay, their vitals were stable, afebrile at 97.6. Labs were unremarkable, H/H 9.5/27.1. POD 1 he was started on Lovenox for DVT ppx, they also received Physical Therapy services twice a day. Physical therapy should include gait training, ROM to tolerance and quad strength. She is WBAT. Prior to discharge, her dressing was clean dry and intact. The Aquacel dressing should remain intact and dry at all times. Any concerns with the dressing, please contact orthopedic office. No showering. The plan is to be discharged home with VNA Time Attestation Discharge Coordination Time (in mins): 30 Quality: Safe Use of Opioids Does Pt have an Active Cancer Diagnosis on the Problem List?: No Quality: Stroke Does the patient have a stroke diagnosis?: No Physical Exam Vital Signs: Vital Signs: Last Vital Signs Temp 97.6 F 09/20/24 11:22 Pulse 68 09/20/24 11:22 Resp 16 09/20/24 03:03 BP 120/61 09/20/24 11:22 Pulse Ox 97 09/20/24 11:22 O2 Del Method Room Air 09/20/24 11:22 BMI result Body Mass Index 30.8 DS: Data Data Completed and Pending Pending studies at discharge: Pending at discharge 09/19/24 10:50 Surgical [PTH] Routine Labs on day of discharge: Laboratory Results - last 24 hr 09/19/24 09/19/24 09/20/24 16:31 19:46 06:21 WBC 5.2 RBC 2.80 L Hgb 9.5 L Hct 27.1 L MCV 96.8 MCH 33.9 H MCHC 35.1 H RDW 13.0 Plt Count 160 MPV 9.0 L Immature Gran % (Auto) 0.4 Neut % (Auto) 75.5 H Lymph % (Auto) 14.9 L [place] % (Auto) 8.8 Eos % (Auto) 0.0 Baso % (Auto) 0.4 Lymph # (Auto) 0.8 L [place] # (Auto) 0.5 Eos # (Auto) 0.0 Baso # (Auto) 0.0 Abs Immat Gran (auto) 0.02 Absolute Neuts (auto) 4.0 Absolute Nucleated RBC 0.000 Nucleated RBC % (auto) 0.0 Sodium 139 Potassium 4.4 Chloride 106 Carbon Dioxide 24 Anion Gap 13 BUN 19 H Creatinine 0.82 Estim Creat Clear Calc 74.8 Estimated GFR > 60 POC Glucose 153 H 143 H Fasting Glucose 125 H Calcium 8.6 09/20/24 07:16 WBC RBC Hgb Hct MCV MCH MCHC RDW Plt Count MPV Immature Gran % (Auto) Neut % (Auto) Lymph % (Auto) [place] % (Auto) Eos % (Auto) Baso % (Auto) Lymph # (Auto) [place] # (Auto) Eos # (Auto) Baso # (Auto) Abs Immat Gran (auto) Absolute Neuts (auto) Absolute Nucleated RBC Nucleated RBC % (auto) Sodium Potassium Chloride Carbon Dioxide Anion Gap BUN Creatinine Estim Creat Clear Calc Estimated GFR POC Glucose 128 H Fasting Glucose Calcium Discharge Plan Discharge Patient Disposition: Home Health Service Referrals: [facility] [Other] - 1 Week Mecca Biswas PA-C [Physician System Development Engineer] - 10/06/24 1:45 pm Discharge Medications: New celecoxib 200 mg Capsule 200 mg PO BID 30 Days Qty: 60 0RF acetaminophen 325 mg Tablet 650 mg PO Q6H PRN (Reason: Pain, Mild 1-3,Fever,Headache) 30 Days Qty: 240 0RF docusate sodium 100 mg Capsule 100 mg PO BID 7 Days Qty: 14 0RF gabapentin 100 mg Capsule 100 mg PO BEDTIME 7 Days Qty: 7 0RF oxycodone 5 mg Tablet 5 mg PO Q4H 7 Days Qty: 42 0RF Rx Instructions: Partial Fill upon patient request. enoxaparin 40 mg/0.4 mL Syringe 40 mg subcut Q24H 42 Days Qty: 16.8 0RF methocarbamol 500 mg Tablet 500 mg PO TID 7 Days Qty: 21 0RF Continued (DME) walker Misc See Rx Instructions .ROUTE .MEDSUPPLY Qty: 1 0RF Rx Instructions: Folding front wheeled walker albuterol sulfate 90 mcg/actuation Hfa Aerosol Inhaler 2 puff INHALATION Q4-6H PRN (Reason: Shortness Of Breath Or Wheezing) letrozole 2.5 mg tablet 2.5 mg PO DAILY paroxetine HCl 10 mg tablet 10 mg PO BEDTIME fluticasone propionate 50 mcg/actuation spray,suspension 1 spray intranasal DAILY PRN (Reason: Allergy Symptoms) abemaciclib 50 mg tablet 50 mg PO BID metformin 500 mg tablet 500 mg PO DAILY Discharge Orders: Discharge Order (Routine); Ordered 09/20/24 Ordered By: Carlos Krishnan Diet: Advance to usual diet Activity on Discharge: Use cane or walker Activity Restrictions/Additional Instructions: Physical Therapy for ROM 0-120, quad strength, gait training. Use walker for ambulation Limit stair climbing, No shower, No tub bath, No driving Continue Lovenox x 6 weeks Keep Aquacel dressing clean, dry and intact. Follow up with orthopedics in 2 weeks Print Language: Fijian
--- NOTE | 2024-09-20 12:01 | W.MHC.F2F ---
Service Date Service Date: 09/20/24 Encounter Date of encounter: 09/20/24 Reasons for Services Signs and symptoms assessed: Weakness, poor balance, poor gait mechanics Reason for intermediate: medication treatment Reason for physical therapy: home safety and mobility, therapeutic exercises, restore joint function, gait/transfer training, ADL training and energy conservation Reason for occupational therapy: home safety and mobility, therapeutic exercises, restore joint function, gait/transfer training, ADL training and energy conservation Overseeing Care: Ari Gonzales Homebound: Leaving the home is medically contraindicated at this time without the asist of a device and/or another person due th the listed conditions above and below. Reason homebound: unsteady gait / fall risk, pain with ambulation, poor balance / fall risk and unable to drive Homebound supporting statement: Pt. is considered home bound due to recent surgery. Unable to drive, poor balance, poor gait mechanics. Certification: Based on the above findings, I certify that this patient is confined to the home and needs intermittent intermediate care, physical therapy and/or speech therapy, or continues to need occupational therapy. The patient is under my care, and I have initiated the establishment of the plan of care. The patient will be followed by a physician who will periodically review the plan of care. Time Spent With Patient Time: Total time managing care of this patient today ____ minutes.
--- NOTE | 2024-09-20 12:17 | MHC.CM.PN ---
PT DCD HOME WITH MARY ROSENBERG
[2024-09-20 12:41] LABS: Glucose, Whole Blood 134 mg/dL (60-115)
[2024-09-20 13:16] VITALS: BP 125/72; PULSE 75; RESP 16; TEMP 36.2; O2SAT 97
== END 2024-09-20 14:37 | disposition home health service (06) ==
LOC: HO.SSS 06:59 → HO.S3 09:03
PROVIDERS: Physician Assistant; Visit Provider Orthopaedic Surgery
PROC: (CPT 27447; principal; 2024-09-19 09:00)
DX: M17.12 Unilateral primary osteoarthritis, left knee (principal); M25.562 Pain in left knee; E11.9 Type 2 diabetes mellitus without complications; C54.1 Malignant neoplasm of endometrium; Z90.710 Acquired absence of both cervix and uterus; J45.909 Unspecified asthma, uncomplicated; I49.3 Ventricular premature depolarization; F39 Unspecified mood [affective] disorder; F41.8 Other specified anxiety disorders; Z79.811 Long term (current) use of aromatase inhibitors; Z79.84 Long term (current) use of oral hypoglycemic drugs; Z79.899 Other long term (current) drug therapy; Z88.1 Allergy status to other antibiotic agents; L23.1 Allergic contact dermatitis due to adhesives; Z98.890 Other specified postprocedural states
CPT/HCPCS: 27447; 36415; 80048; 82947; 83036; 85025; 86850; 86900; 86901; 87640; 87641; 88305; 88311; 97110; 97116; 97161; 97530; A6260; C1776; J0131; J0171; J0665; J0690; J0736; J1100; J1650; J2003; J2250; J2795; J3370; J7120

== ENCOUNTER → 2024-09-19 06:58 | Outpatient (BNV) | payer MEDICARE, SELFPAY | PROVIDERS: Visit Provider Orthopaedic Surgery | DX: M17.12 Unilateral primary osteoarthritis, left knee (principal) | CPT/HCPCS: 27447; 99024; G0180 ==

== ENCOUNTER → 2024-09-19 06:58 | Outpatient (BNV) | payer MEDICARE, SELFPAY | PROVIDERS: Visit Provider Internal Medicine | DX: E11.9 Type 2 diabetes mellitus without complications (principal); C54.1 Malignant neoplasm of endometrium; M17.12 Unilateral primary osteoarthritis, left knee | CPT/HCPCS: 99203 ==

== ENCOUNTER 2024-10-06 09:25 | Outpatient (REF) | payer MEDICARE, SELFPAY ==
--- NOTE | ~2024-10-06 | XR_ITS ---
EXAMINATION: XR KNEE 3 VIEWS LEFT HISTORY: M25.569 - Pain in unspecified knee COMPARISON: Comparison is made with the prior examination dated 07/12/2024. FINDINGS: Standing AP views of both knees and additional lateral and sunrise patellar views of the left knee are submitted. The patient is status post total knee arthroplasty. The orthopedic elements are in anatomic alignment. There is no fracture or dislocation. Post surgical changes are noted in the soft tissues. XR/XR knee LT 3V IMPRESSION: Status post left total knee arthroplasty. Electronically signed by: Louie Black MD 10/06/2024 03:51 PM EDT
--- OUTSIDE RECORDS SUMMARY | 2024-10-07 09:41 | XMS_ITS ---
Author Organization [facility] Address [address] [place] [address] Care Team Providers Care Canary Raiser Name Role Phone Dr Sadie Mccurdy Primary Care Provider Mikal Medrano MD, MSc, Joann Melara [phone] REASON FOR VISIT Former Stem Cell Encounters Encounter Location Date Provider Diagnosis [facility] [address] [place] [address] 05/26/2023 Joann Medrano Plan Of Treatment No Information Progress Notes * Louie HUNTaDOB:1955 (68 yo F)Acc No.[id number]:05/26/2023 Patient:?Elyssa HUNT Provider:?Joann Medrano MD MSc :1955???Age:67 Y???Sex:Female D ate:05/26/2023 Address:[address], [facility], [id number] Pcp:Dr Sadie Mccurdy Subjective: * Chief Complaints: * ???1. Former Stem Cell. * Medical History:? Objective: * Vitals:? Assessment: Plan: * Treatment: * Images: Billing Information: * Visit Code:? * Procedure Codes:? * Electronic signature of Annalise Medrano MD MSc, MD on 10/07/2024 at 09:41 AM EDT Sign off status: Pending * Provider:?Joann Medrano MD MSc Date:?05/11 Generated for Printi ng/Faxing/eTransmitting on:?10/07/2024 09:41 AM EDT
== END 2024-10-06 09:26 | disposition home or self-care (01) ==
LOC: HO.HOSX 09:25
PROVIDERS: Visit Provider Physician Assistant
DX: Z47.1 Aftercare following joint replacement surgery (principal); Z96.652 Presence of left artificial knee joint
CPT/HCPCS: 73562; 99212

== ENCOUNTER 2024-10-06 13:53 | Outpatient (AMB) | payer MEDICARE, SELFPAY ==
--- OUTSIDE RECORDS SUMMARY | 2024-10-06 14:04 | XMS_ITS | Clinical Summary ---
Author Organization [facility] ([facility] [id number]) Address [address] [place] [address] Phone Care Team Providers Care Perinatology Physician Name Role Phone ALLISON DO, TOLLER Unavailable Unavailable GOOD PT, GEORGINA Unavailable Unavailable Payers Payer Name Policy Type Policy Number Effective Date Expira tion Date NGS - PDGM [id number] Problems Condition Name Condition Details Condition Category Status Onset Date Resolution Date Last Treatment Date Treating Clinician Comments AFTERCARE FOLLOWING JOINT REPLACEMENT SURGERY Active 09-21 00:00: 00 PRESENCE OF LEFT ARTIFICIAL KNEE JOINT Active 09-21 00:00: 00 ATTENDANCE CLERK (CURRENT) USE OF ANTICOAGULAN TS Active 05-11 00:00: 00 OTHER ATTENDANCE CLERK (CURRENT) DRUG THERAPY Active 05-11 00:00: 00 [facility] (CURRENT) USE OF NON-STEROIDA L NON-INFLAM (NSAID) Active 05-11 00:00: 00 PERSONAL HISTORY OF MALIGNANT NEOPLASM OF OTH PRT UTERUS Active 05-11 00:00: 00 PERSONAL HISTORY OF HODGKIN LYMPHOMA Active 05-11 00:00: 00 HISTORY OF FALLING Active 05-11 00:00: 00 Allergies, Adverse Reactions, Alerts Allergy Name Allergy Type Status Severity Reaction(s) Onset Date Inactive Date Treating Clinician Comments AMOXICILLIN SENSITIVITY Propensity to adverse reactions Active 09-21 15:33: 33 Medications Ordered Medication Name Filled Medication Name Start Date Stop Date Current Medication? Ordering Clinician Indication Dosage Frequency Signature (SIG) Comments Components acetaminoph en 325 mg tablet 09-19 00:00: 00 Yes [id number] 3 tablet EVERY 6 HOURS 3 tablet EVERY 6 HOURS (route: oral) Med Classific ation: Analgesic , Anti-infl ammatory or Antipyret ic fluticasone propionate 50 mcg/actuati on nasal spray,suspe nsion 08-09 00:00: 00 Yes [id number] 1 spray DAILY 1 spray DAILY (route: nasal) Med Classific ation: Respirato ry Therapy Agents gabapentin 100 mg capsule 09-19 00:00: 00 09-26 23:59 :00 No [id number] 1 capsule BEDTIME 1 capsule BEDTIME (route: oral) Med Classific ation: Central Nervous System Agents letrozole 2.5 mg tablet - 00:00: 00 Yes [id number] 1 tablet DAILY 1 tablet DAILY (route: oral) Med Classific ation: Antineopl astics metformin 500 mg tablet 05-11 00:00: 00 Yes [id number] 1 tablet DAILY 1 tablet DAILY (route: oral) Med Classific ation: Endocrine oxycodone 5 mg tablet 09-19 00:00: 00 Yes [id number] 1 tablet EVERY 4 HOURS 1 tablet EVERY 4 HOURS (route: oral) Med Classific ation: Analgesic , Anti-infl ammatory or Antipyret ic paroxetine 10 mg tablet - 00:00: 00 Yes [id number] 1 tablet BEDTIME 1 tablet BEDTIME (route: oral) Med Classific ation: Central Nervous System Agents Verzenio 50 mg tablet - 00:00: 00 Yes [id number] 1 tablet 2 TIMES DAILY 1 tablet 2 TIMES DAILY (route: oral) Med Classific ation: Antineopl astics albuterol sulfate HFA 90 mcg/actuati on aerosol inhaler - 00:00: 00 Yes [id number] 2 puff EVERY 4 HOURS 2 puff EVERY 4 HOURS (route: inhalation ) Med Classific ation: Respirato ry Therapy Agents celecoxib 200 mg capsule 09-19 00:00: 00 Yes [id number] 1 capsule 2 TIMES DAILY 1 capsule 2 TIMES DAILY (route: oral) Med Classific ation: Analgesic , Anti-infl ammatory or Antipyret ic enoxaparin 40 mg/0.4 mL subcutaneou s syringe 09-19 00:00: 00 Yes [id number] 40 mg DAILY 40 mg DAILY (route: subcutaneo us) Med Classific ation: Hematolog ical Agents methocarbam ol 500 mg tablet 09-19 00:00: 00 09-26 23:59 :00 No [id number] 1 tablet 3 TIMES DAILY 1 tablet 3 TIMES DAILY (route: oral) Med Classific ation: Locomotor System Immunizations Ordered Immunization Name Filled Immunization Name Date Status Comments INFLUENZA, TIV (INACTIVATED) 2024-01-11 00:00:00 PNEUMOCOCCAL (PPV), PPV 00:00:00 SHINGLES, TIV (INACTIVATED) 2020-05-23 00:00:00 Vital Signs Vital Name Observation Time Observation Value Commen ts Temperature 2024-10-04 11:21:00.000 98.3 [degF] Temperature 2024-09-29 10:44:00.000 97.3 [degF] Temperature 2024-09-26 09:26:00.000 97.3 [degF] Temperature 2024-09-23 09:22:00.000 97.1 [degF] Temperature 2024-09-21 14:25:00.000 97.1 [degF] BMI (%) 2024-09-21 14:25:00.000 29 kg/m2 Height 2024-09-21 14:25:00.000 66 [in_us] Pulse 2024-10-04 12:03:00.000 88 /min Pulse 2024-10-04 11:21:00.000 86 /min Pulse 2024-09-29 11:50:00.000 72 /min Pulse 2024-09-29 10:44:00.000 68 /min Pulse 2024-09-26 14:39:00.000 80 /min Pulse 2024-09-26 09:26:00.000 75 /min Pulse 2024-09-23 09:22:00.000 71 /min Pulse 2024-09-21 15:44:00.000 92 /min Pulse 2024-09-21 14:25:00.000 89 /min O2 Saturation (%) 2024-10-04 12:02:00.000 97 % O2 Saturation (%) 2024-10-04 11:21:00.000 98 % O2 Saturation (%) 2024-09-29 11:50:00.000 99 % O2 Saturation (%) 2024-09-29 10:44:00.000 98 % O2 Saturation (%) 2024-09-26 09:26:00.000 96 % O2 Saturation (%) 2024-09-23 09:22:00.000 96 % O2 Saturation (%) 2024-09-21 15:44:00.000 97 % O2 Saturation (%) 2024-09-21 14:25:00.000 96 % Respirations 2024-10-04 11:21:00.000 18 /min Respirations 2024-09-29 10:44:00.000 16 /min Respirations 2024-09-26 09:26:00.000 16 /min Respirations 2024-09-23 09:22:00.000 16 /min Respirations 2024-09-21 14:25:00.000 16 /min Weight (lbs) 2024-09-21 14:25:00.000 185 [lb_av] Systolic Blood Pressure 2024-10-04 12:02:00.000 115 mm [Hg] Systolic Blood Pressure 2024-10-04 11:21:00.000 130 mm [Hg] Systolic Blood Pressure 2024-09-29 10:44:00.000 130 mm [Hg] Systolic Blood Pressure 2024-09-26 09:26:00.000 148 mm [Hg] Systolic Blood Pressure 2024-09-23 09:22:00.000 140 mm [Hg] Systolic Blood Pressure 2024-09-21 14:25:00.000 116 mm [Hg] Diastolic Blood Pressure 2024-10-04 12:02:00.000 80 mm [Hg] Diastolic Blood Pressure 2024-10-04 11:21:00.000 75 mm [Hg] Diastolic Blood Pressure 2024-09-29 10:44:00.000 80 mm [Hg] Diastolic Blood Pressure 2024-09-26 09:26:00.000 90 mm [Hg] Diastolic Blood Pressure 2024-09-23 09:22:00.000 78 mm [Hg] Diastolic Blood Pressure 2024-09-21 14:25:00.000 72 mm [Hg] Plan of Care Planned Activity Planned Date Details Comments Future Scheduled Test PHYSICAL T HERAPIST WILL ASSESS AND INSTRUCT ON ANY CHANGES IN CO-EXISTING AND/OR RECURRING CONDITIONS SUCH AFTERCARE FOLLOWING A LEFT KNEE REPLACEMENT, FACTORS THAT IMPACT ACTIVITY AND PARTICIPATION, DEVELOP PHYSICAL THERAPY PLAN OF CARE IN CONSULTATION WITH THE PHYSICIAN THAT INCLUDES INFECTION PREVENTION/CONTROL, DEPRESSION, HEALTH PROMOTION, HOME SAFETY, NUTRITIONAL NEEDS, IDENTIFICATION OF NEW OR CHANGED MEDICATIONS AND HOME INSTRUCTIONS TO FACILITATE TIMELY DISCHARGE. MAY RESUME CARE IF PATIENT IS TRANSFERRED TO AN INPATIENT FACILITY AND SUBSEQUENTLY DISCHARGED DURING THE EPISODE OF CARE. MAY D/C FROM AGENCY/SKILLED DISCIPLINE FOR GOALS MET, NO FURTHER SKILLS, NO LONGER HOMEBOUND, PER CT/PCG/MD REQUEST, UNSAFE HOME ENVIRONMENT, MOVED OUT OF SERVICE AREA OR DISCHARGED TO HOSPICE SERVICE. [code = PHYSICAL THERAPIST WILL ASSESS AND INSTRUCT ON ANY CHANGES IN CO-EXISTING AND/OR RECURRING CONDITIONS SUCH AFTERCARE FOLLOWING A LEFT KNEE REPLACEMENT, FACTORS THAT IMPACT ACTIVITY AND PARTICIPATION, DEVELOP PHYSICAL THERAPY PLAN OF CARE IN CONSULTATION WITH THE PHYSICIAN THAT INCLUDES INFECTION PREVENTION/CONTROL, DEPRESSION, HEALTH PROMOTION, HOME SAFETY, NUTRITIONAL NEEDS, IDENTIFICATION OF NEW OR CHANGED MEDICATIONS AND HOME INSTRUCTIONS TO FACILITATE TIMELY DISCHARGE. MAY RESUME CARE IF PATIENT IS TRANSFERRED TO AN INPATIENT FACILITY AND SUBSEQUENTLY DISCHARGED DURING THE EPISODE OF CARE. MAY D/C FROM AGENCY/SKILLED DISCIPLINE FOR GOALS MET, NO FURTHER SKILLS, NO LONGER HOMEBOUND, PER CT/PCG/MD REQUEST, UNSAFE HOME ENVIRONMENT, MOVED OUT OF SERVICE AREA OR DISCHARGED TO HOSPICE SERVICE.] Future Scheduled Test I CERTIFY THAT THIS PATIENT IS CONFINED TO HIS/HER HOME AND NEEDS INTERMITTENT RESIDENTIAL CARE, PHYSICAL THERAPY AND/OR SPEECH THERAPY OR CONTINUES TO NEED OCCUPATIONAL THERAPY. THE PATIENT IS UNDER MY CARE AND I HAVE AUTHORIZED SERVICES ON THIS PLAN OF CARE AND WILL PERIODICALLY REVIEW THE PLAN. THE PATIENT HAD A LPKQ-HD-BTAM ENCOUNTER RELATED TO THE PRIMARY REASON FOR HOME HEALTH CARE WITH AN ALLOWED PROVIDER TYPE ON 09/20/24. [code = I CERTIFY THAT THIS PATIENT IS CONFINED TO HIS/HER HOME AND NEEDS INTERMITTENT RESIDENTIAL CARE, PHYSICAL THERAPY AND/OR SPEECH THERAPY OR CONTINUES TO NEED OCCUPATIONAL THERAPY. THE PATIENT IS UNDER MY CARE AND I HAVE AUTHORIZED SERVICES ON THIS PLAN OF CARE AND WILL PERIODICALLY REVIEW THE PLAN. THE PATIENT HAD A TAVR-NP-VYHL ENCOUNTER RELATED TO THE PRIMARY REASON FOR HOME HEALTH CARE WITH AN ALLOWED PROVIDER TYPE ON 09/20/24.] Future Scheduled Test PHYSICAL T HERAPIST WILL ASSESS AND INSTRUCT ON PAIN MANAGEMENT EACH VISIT AND PROVIDE INSTRUCTION REGARDING PAIN CONTROL INCLUDING PHARMACOLOGIC AND NON-PHARMACOLOGIC METHODS [code = PHYSICAL THERAPIST WILL ASSESS AND INSTRUCT ON PAIN MANAGEMENT EACH VISIT AND PROVIDE INSTRUCTION REGARDING PAIN CONTROL INCLUDING PHARMACOLOGIC AND NON-PHARMACOLOGIC METHODS ] Future Scheduled Test PHYSICAL T HERAPIST WILL ASSESS AND INSTRUCT CLIENT/CAREGIVER IN GENERAL MODIFIABLE RISKS AND SAFETY ROUTINES FOR FALLS PREVENTION. [code = PHYSICAL THERAPIST WILL ASSESS AND INSTRUCT CLIENT/CAREGIVER IN GENERAL MODIFIABLE RISKS AND SAFETY ROUTINES FOR FALLS PREVENTION. ] Future Scheduled Test PHYSICAL T HERAPIST TO ASSESS AND INSTRUCT ON INTERVENTIONS FOR IMPROVED FUNCTIONAL MOBILITY WITH TRANSFERS, BED MOBILITY, AMBULATION, THERAPEUTIC/BALANCE EXERCISES AND HOME PROGRAM NEEDED. [code = PHYSICAL THERAPIST TO ASSESS AND INSTRUCT ON INTERVENTIONS FOR IMPROVED FUNCTIONAL MOBILITY WITH TRANSFERS, BED MOBILITY, AMBULATION, THERAPEUTIC/BALANCE EXERCISES AND HOME PROGRAM NEEDED.] Future Scheduled Test PHYSICAL T HERAPIST WILL ASSESS AND INSTRUCT CLIENT/CAREGIVER ON MANAGEMENT OF SKIN INTEGRITY AND PREVENTION OF PRESSURE ULCERS WITH/WITHOUT MOIST SKIN BARRIER, POSITIONING, INSPECTION, AND OFFLOADING TECHNIQUES. THERAPIST WILL ASSESS THE NEED FOR SUPPORT SURFACES (CUSHION, MATTRESS, ETC). [code = PHYSICAL THERAPIST WILL ASSESS AND INSTRUCT CLIENT/CAREGIVER ON MANAGEMENT OF SKIN INTEGRITY AND PREVENTION OF PRESSURE ULCERS WITH/WITHOUT MOIST SKIN BARRIER, POSITIONING, INSPECTION, AND OFFLOADING TECHNIQUES. THERAPIST WILL ASSESS THE NEED FOR SUPPORT SURFACES (CUSHION, MATTRESS, ETC).] Future Scheduled Test PHYSICAL T HERAPY WILL ASSESS AND INSTRUCT CLIENT/CAREGIVER ON THE MANAGEMENT OF POST KNEE REPLACEMENT AND MONITOR POST OP COMPLICATIONS TO INCLUDE DVT, GI SYMPTOMS AND PAIN/EDEMA WITH USE OF CRYOTHERAPY TO AFFECTED KNEE FOR 20-30 MINS 3-5 TIMES PER DAY; MOBILIZATION OF INCISIONAL SCAR APPROPRIATE; INSTRUCTION OF PHYSICIAN PRECAUTIONS APPLICABLE WITH MOBILITY TRAINING AND THER-EX/HEP INDICATED, SAFE ROM MOVEMENT, DISCHARGE PLANNING TO REMAIN SAFE AT HOME. [code = PHYSICAL THERAPY WILL ASSESS AND INSTRUCT CLIENT/CAREGIVER ON THE MANAGEMENT OF POST KNEE REPLACEMENT AND MONITOR POST OP COMPLICATIONS TO INCLUDE DVT, GI SYMPTOMS AND PAIN/EDEMA WITH USE OF CRYOTHERAPY TO AFFECTED KNEE FOR 20-30 MINS 3-5 TIMES PER DAY; MOBILIZATION OF INCISIONAL SCAR APPROPRIATE; INSTRUCTION OF PHYSICIAN PRECAUTIONS APPLICABLE WITH MOBILITY TRAINING AND THER-EX/HEP INDICATED, SAFE ROM MOVEMENT, DISCHARGE PLANNING TO REMAIN SAFE AT HOME. ] Future Scheduled Test PHYSICAL T HERAPIST WILL ASSESS AND MONITOR L KNEE INCISION EACH VISIT, KEEP SURGICAL DRESSING ON UNTIL FOLLOW UP WITH SURGEON, NO SHOWERING [code = PHYSICAL THERAPIST WILL ASSESS AND MONITOR L KNEE INCISION EACH VISIT, KEEP SURGICAL DRESSING ON UNTIL FOLLOW UP WITH SURGEON, NO SHOWERING] Reason for Visit INDEPENDENT IN THE HOME Encounters Start Date/Time End Date/Time Encounter Type Admission Type Attending [facility] Care Department Encounter ID [id number] 00:00:00 2024-10-04 00:00:00 Unknown NEW ADMISSION GEORGINA WILLS [facility] [id number]
--- NOTE | 2024-10-06 14:10 | MHC.OFFVIS ---
Intake Visit Reasons: 2WK PO: L TKA w/ 09/19/24 Intake Note: Elyssa is a 68 year old female who presents today for a post op appointment s/p Left total knee arthroplasty 09/19/24 Patient reports she is doing well. She has been using her can but only when needed. Allergies amoxicillin [AMOXICILLIN] Allergy (Severe, Verified 10/06/24 14:15) Rash adhesive tape Adverse Reaction (Intermediate, Verified 10/06/24 14:15) Rash HPI HPI 2WK PO: L TKA w/ 09/19/24: Details: Ms. Romero is a 68-year-old female who presents to the office today status post left total knee arthroplasty with Dr. You performed on 09/19/2024. Overall the patient is doing very well. She is using a cane to assist with ambulation. Physical therapy is coming to her home to work with her. She is managing well with pain. No additional complaints. [facility] Medical History Bilateral cataracts Arthritis Back pain History of phlebitis (~1989) History of blood transfusion Mild anxiety History of asthma Asymptomatic PVCs Endometrial cancer Seasonal allergies Surgical History History of surgery Hx of excision of mass (03/09/20) History of robot-assisted laparoscopic hysterectomy (2017) Hx of colonoscopy History of surgery (~1974) History of arthroscopic knee surgery Hx of varicose vein ligation Hx of section History of laparotomy (02/2020) Social History Household Members: Spouse Housing: House Are you a primary physician locums urgent care to a significant other at home: No Do you presently have visiting nurse or other home services: No 75 years or older and lives alone: No Patient Tobacco Use Status: Never used Tobacco e-Cigarette/Vaping Use: Never Used service: No Review of Systems Const All systems reviewed & are unremarkable except as noted in HPI and below Physical Exam Const General: cooperative, healthy appearing and no acute distress Resp Effort & Inspection: normal respiratory effort and able to speak in complete sentences Extrem Other: Left knee incision site is clean dry and intact. [place] intact. No surrounding erythema or drainage. No signs of infection. Range of motion is 10 to 85 degrees. NVI. Assessment & Plan Assessment & Plan (1) Status post total left knee replacement: Code(s): Z96.652 - Presence of left artificial knee joint Category: Surgical Plan Ms. Romero is a 68-year-old female who presents to the office today status post left total knee arthroplasty with Dr. You performed on 09/19/2024. Overall the patient is doing very well. She is using a cane to assist with ambulation. Physical therapy is coming to her home to work with her. She is managing well with pain. No additional complaints. While in the office today, the patient was instructed to continue with physical therapy working on range of motion. Carolyn were removed and Steri-Strips were applied. She may shower. No tub baths or soaking. She will continue with anticoagulation until 6 weeks postoperatively. She will follow up in [address] you, sooner if needed. X-rays of the left knee which were obtained while in the office today and were reviewed by me, Mecca Biswas PA-C, revealed intact left knee total arthroplasty with satisfactory alignment. Orders: Orders XR knee LT 3V Today M25.569 - Pain in unspecified knee Coding Level of Care Code Global (05210) Diagnoses Status post total left knee replacement Z96.652
== END 2024-10-06 14:58 | disposition home or self-care (01) ==
LOC: HO.HOS 13:54
PROVIDERS: Visit Provider Physician Assistant
DX: Z96.652 Presence of left artificial knee joint (principal)
CPT/HCPCS: 99024

== ENCOUNTER → 2024-10-06 14:04 | Outpatient (BNV) | payer MEDICARE, SELFPAY | PROVIDERS: Visit Provider Radiology Diagnostic Radiology | DX: Z96.652 Presence of left artificial knee joint (principal) | CPT/HCPCS: 73562 ==

== ENCOUNTER 2024-10-27 13:14 | Outpatient (AMB) | payer MEDICARE, SELFPAY ==
--- OUTSIDE RECORDS SUMMARY | 2023-05-26 16:45 | XMS_ITS ---
Author Organization [facility] Address [address] [facility] [address] [place] [address] Care Team Providers Care Thermo Cementing Folder Operator Name Role Phone Dr Sadie Mccurdy Primary Care Provider Mikal Medrano MD, MSc, Joann Melara [phone] REASON FOR VISIT Former Stem Cell Encounters Encounter Location Date Provider Diagnosis [facility] [address] [facility] [address] [place] [address] 05/26/2023 Joann Medrano Plan Of Treatment No Information Progress Notes * Louie HUNTRohanB:1955 (68 yo F)Acc No.[id number]:05/26/2023 Patient: Elyssa FRANKLIN Provider: Nadir Medrano MD MSc :1955 A ge:67 Y S ex:Female Date:05/26/2023 Address: [address], [place], [place]-[address] Pcp:Dr Sadie Mccurdy Subjective: * Chief Complaints: * 1 . Former Stem Cell. * Medical History: Objective: * Vitals: Assessment: Plan: * Treatment: * Images: Billing Information: * Visit Code: * Procedure Codes: * Electronic signature of Annalise Medrano MD MSc, MD on 10/27/2024 at 02:22 PM EDT Sign off status: Pending * Provider: Nadir Medrano MD MSc Date: 0 05/26/2023 Generated for Mervin ng/Faxing/eTransmitting on: 0 10/27/2024 02:22 PM EDT
--- NOTE | 2024-10-27 13:17 | A.OFFVIS_ITS ---
Vital Signs 10/27/24 13:21 Height 5 ft 6 in Weight 191 lb BMI 30.8 Intake Visit Reasons: 6WK PO: L TKA w/ 09/19/24 Intake Note: Elyssa is a 68 year old female who presents today for post-operatively after undergoing a left total knee arthroplasty on 09/19/24. The patient reports mild discomfort in her left knee. She takes Tylenol as needed. She is no longer taking narcotics. The patient states that she had been on Keflex because of a tick bite. She has been riding her recumbent stationary bike for exercise. Allergies amoxicillin (AMOXICILLIN) Allergy (Severe, Verified 10/27/24 13:21) Rash adhesive tape Adverse Reaction (Intermediate, Verified 10/27/24 13:21) Rash Medication List - Last Reviewed 10/27/24 by TAHIR Morales abemaciclib 50 mg PO BID acetaminophen 650 mg (2 x 325 mg) PO Q6H PRN 30 days albuterol sulfate 90 mcg/actuation 2 puffs inhalation Q4-6H PRN celecoxib 200 mg PO BID 30 days docusate sodium 100 mg PO BID 7 days enoxaparin 40 mg (0.4 mL) subcut Q24H 42 days fluticasone propionate 50 mcg/actuation 1 spray intranasal DAILY PRN gabapentin 100 mg PO BEDTIME 7 days letrozole 2.5 mg PO DAILY metformin 500 mg PO DAILY methocarbamol 500 mg PO TID 7 days paroxetine HCl 10 mg PO BEDTIME walker Folding front wheeled walker [facility] Medical History Bilateral cataracts Arthritis Back pain History of phlebitis (~1989) History of blood transfusion Mild anxiety History of asthma Asymptomatic PVCs Endometrial cancer Seasonal allergies Surgical History History of surgery Hx of excision of mass (03/09/20) History of robot-assisted laparoscopic hysterectomy (2017) Hx of colonoscopy History of surgery (~1974) History of arthroscopic knee surgery Hx of varicose vein ligation Hx of section History of laparotomy (02/2020) Social History Household Members: Spouse Housing: House Are you a primary child day care teacher to a significant other at home: No Do you presently have visiting nurse or other home services: No 75 years or older and lives alone: No Patient Tobacco Use Status: Never used Tobacco e-Cigarette/Vaping Use: Never Used service: No Physical Exam Extrem Other: Left knee examination shows that the surgical incision is well healed, a slight amount of redness along the proximal aspect of the incision, full active extension and flexion to 110 degrees, her patella tracks well, minimal discomfort with range of motion Assessment & Plan Assessment & Plan (1) Left knee pain: Code(s): M25.562 - Pain in left knee Category: Medical Plan Ms. Romero continues to do very well after undergoing left total knee replacement surgery on 09/19/2024. She does have a small amount of redness along the proximal aspect of her incision most likely due to suture reaction. I did give the patient a prescription for Bactrim which she will start if the redness does not continue to resolve on its own over the next few weeks. She will continue with her physical therapy exercises. She will contact me prior to her follow-up appointment in 2 months should any questions or concerns arise. Medications: New sulfamethoxazole-trimethoprim 800-160 mg (Bactrim DS) 1 tab PO BID 20 tabs 0RF 10 days Coding Level of Care Code Global (93505) Diagnoses Left knee pain M25.562
[2024-10-27 13:21] VITALS: BMI 30.8
== END 2024-10-27 13:31 | disposition home or self-care (01) ==
LOC: HO.HOS 13:14
PROVIDERS: Visit Provider Orthopaedic Surgery
DX: M25.562 Pain in left knee (principal)
CPT/HCPCS: 99024

== ENCOUNTER → 2024-10-27 13:14 | Outpatient (BNVA) | payer MEDICARE, SELFPAY | PROVIDERS: Visit Provider Orthopaedic Surgery | DX: Z47.89 Encounter for other orthopedic aftercare (principal); M25.562 Pain in left knee | CPT/HCPCS: 99212 ==

== ENCOUNTER 2024-12-22 12:51 | Outpatient (AMB) | payer MEDICARE, SELFPAY ==
--- NOTE | 2024-12-22 12:54 | A.OFFVIS_ITS ---
Vital Signs 12/22/24 12:55 Height 5 ft 6 in Weight 191 lb BMI 30.8 Intake Visit Reasons: OV- L TKA w/ 09/19/24 Intake Note: Elyssa is a 69 year old female who presents today as a follow up for her Left TKA w/ 09/19/24. Patient states she is doing very well and has no pain or concerns. States she has completed P.T. She continues with her home exercise program. She does have intermittent discomfort in her right knee. Allergies amoxicillin (AMOXICILLIN) Allergy (Severe, Verified 12/22/24 12:58) Rash adhesive tape Adverse Reaction (Intermediate, Verified 12/22/24 12:58) Rash Medication List - Last Reconciled 12/22/24 by Ari Gonzales MD abemaciclib 50 mg PO BID acetaminophen 650 mg (2 x 325 mg) PO Q6H PRN 30 days albuterol sulfate 90 mcg/actuation 2 puffs inhalation Q4-6H PRN celecoxib 200 mg PO BID 30 days clindamycin HCl 600 mg (2 x 300 mg) PO ONCE docusate sodium 100 mg PO BID 7 days enoxaparin 40 mg (0.4 mL) subcut Q24H 42 days fluticasone propionate 50 mcg/actuation 1 spray intranasal DAILY PRN gabapentin 100 mg PO BEDTIME 7 days letrozole 2.5 mg PO DAILY metformin 500 mg PO DAILY methocarbamol 500 mg PO TID 7 days paroxetine HCl 10 mg PO BEDTIME sulfamethoxazole-trimethoprim 800-160 mg (Bactrim DS) 1 tab PO BID 10 days walker Folding front wheeled walker [facility] Medical History Bilateral cataracts Arthritis Back pain History of phlebitis (~1989) History of blood transfusion Mild anxiety History of asthma Asymptomatic PVCs Endometrial cancer Seasonal allergies Surgical History History of surgery Hx of excision of mass (03/09/20) History of robot-assisted laparoscopic hysterectomy (2017) Hx of colonoscopy History of surgery (~1974) History of arthroscopic knee surgery Hx of varicose vein ligation Hx of section History of laparotomy (02/2020) Social History Household Members: Spouse Housing: House Are you a primary housekeeper caregiver to a significant other at home: No Do you presently have visiting nurse or other home services: No 75 years or older and lives alone: No Patient Tobacco Use Status: Never used Tobacco e-Cigarette/Vaping Use: Never Used service: No Physical Exam Vital Signs: BMI result Body Mass Index 30.8 Const Other: Well-nourished well-developed very friendly female awake alert and oriented x3 in no acute distress Extrem Other: Left knee examination shows that the surgical incision is well healed, no erythema, full active extension and flexion to 125 degrees, her patella tracks well Assessment & Plan Assessment & Plan (1) Left knee pain: Code(s): M25.562 - Pain in left knee Category: Medical Plan Ms. Romero continues to do very well after undergoing left total knee replacement surgery on 09/19/2024. She will continue with her home exercise program. She does know to take antibiotics before any dental work. She will contact me prior to her annual follow-up appointment should any questions or concerns arise. Feel free to call me at any time should questions regarding her orthopedic management arise. I spent 22 minutes in reviewing the patient's records and imaging studies, seeing the patient and documenting in the medical record. Coding Level of Care Code Est Pt Level 3 (31349) Complex EM visit Add On G2211 Diagnoses Left knee pain M25.562
[2024-12-22 12:55] VITALS: BMI 30.8
--- OUTSIDE RECORDS SUMMARY | 2024-12-22 13:37 | XMS_ITS | Clinical Summary ---
Author Organization [facility] Address [address] [place] [address] Phone Care Team Providers Care Bereavement Coordinator Name Role Phone Joel Konrad Derik VARGAS Unavailable [phone] Jasper Dudley RN Unavailable [email or web address] [email or web address] Angelika Fagan RN Unavailable [email or web address] Julianna Campo RN Unavailable [email or web address] Sadie Mccurdy DO Primary Care Provider Ari Gonzales MD Unavailable [phone] Allergies Active Allergy Reactions Criticality Noted Date Comments Amoxicillin Hives,Swelling High 04/07/2022 Hives and itching all over and hands and feet swollen Adhesive 12/07/2017 Medications multivitamins capsule Take 1 capsule by mouth daily. Active albuterol 90 mcg/actuation inhaler 2 Active alpha lipoic acid 50 mg Tab Take by mouth. Active calcium-magnesiu m-zinc 333-133-5 mg Tab Active senna-docusate (PERICOLACE) 8.6-50 mg Take 2 tablets by mouth. Active hyalur ac/chond sul/colg II/AA (HYALURONIC ACID, CHOND-COLLGN, ORAL) Take 1 tablet by mouth daily. Active coenzyme Q10 100 mg capsule Take 100 mg by mouth daily. Active PARoxetine (PAXIL) 10 MG tablet Take 1 tablet (10 mg total) by mouth daily. 90 tablet 2 5 Active fluticasone propionate (FLONASE) 50 mcg/actuation nasal spray INSTILL 1 SPRAY BY NASAL ROUTE DAILY 16 g 1 5 Active acetaminophen (TYLENOL) 650 MG CR tablet Take 650 mg by mouth 3 (three) times a day. Active ID-abemaciclib <[id number]> () 50 mg tabletIndication s:Endometrial cancer Take 1 tablet (50 mg total) by mouth 2 (two) times a day. Refer to drug diary for instructions . 60 tablet 5 Active ID-metFORMIN () 500 mg tabletIndication s:Endometrial cancer Take 1 tablet (500 mg total) by mouth daily. Take with food. Refer to drug diary for instructions . 30 tablet 5 Active letrozole (FEMARA) 2.5 mg tabletIndication s:Endometrial cancer Take 1 tablet (2.5 mg total) by mouth daily. Refer to drug diary for instructions . 30 tablet 5 Active ibuprofen (ADVIL,MOTRIN) 400 MG tablet Take 400 mg by mouth every 6 (six) hours as needed for pain (specific location in comments) (takes 3x per week). 12/06/19 25 Discontinu ed(Error) celecoxib (CELEBREX) 200 MG capsule Take 200 mg by mouth 2 (two) times a day. 12/06/19 25 Discontinu ed(Error) enoxaparin (LOVENOX) 40 mg/0.4 mL Syrg subcutaneous syringe 12/06/19 25 Discontinu ed(Error) ID-abemaciclib <[id number]> () 50 mg tabletIndication s:Endometrial cancer Take 1 tablet (50 mg total) by mouth 2 (two) times a day. Refer to drug diary for instructions . 60 tablet 5 12/06/19 25 Discontinu ed(Duplica te order) ID-metFORMIN () 500 mg tabletIndication s:Endometrial cancer Take 1 tablet (500 mg total) by mouth daily. Take with food. Refer to drug diary for instructions . 30 tablet 5 12/06/19 25 Discontinu ed(Duplica te order) letrozole (FEMARA) 2.5 mg tabletIndication s:Endometrial cancer Take 1 tablet (2.5 mg total) by mouth daily. Refer to drug diary for instructions . 30 tablet 5 12/06/19 25 Discontinu ed(Duplica te order) ID-abemaciclib <[id number]> (301) 50 mg tabletIndication s:Endometrial cancer Take 1 tablet (50 mg total) by mouth 2 (two) times a day. Refer to drug diary for instructions . 60 tablet 5 12/06/19 25 Discontinu ed(Duplica te order) ID-metFORMIN (301) 500 mg tabletIndication s:Endometrial cancer Take 1 tablet (500 mg total) by mouth daily. Take with food. Refer to drug diary for instructions . 30 tablet 5 12/06/19 25 Discontinu ed(Duplica te order) letrozole (FEMARA) 2.5 mg tabletIndication s:Endometrial cancer Take 1 tablet (2.5 mg total) by mouth daily. Refer to drug diary for instructions . 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 Seborrheic keratoses 10/07/2022 Lentigines 10/07/2022 Endometrial cancer 09/25/2021 Encounters Date Type Department Care Team Description 12/05/2024 3:00 PM EDT Office Visit [facility], [facility], [facility] [place] at [address] [place] [address] Lisa Hickey MD Endometrial cancer (Primary Dx) 12/05/2024 Documentation [facility], [facility], [facility] [place] [address] [place] [address], [address] [place] [address] [phone] Mary Buckley RN 12/05/2024 Documentation [facility], [facility], [facility] [address] [facility], [address] [place] [address] Mary Buckley RN 11/07/2024 2:30 PM EDT Office Visit [facility], [facility], [facility] at [address] [address] Anna Arriaga NP Matulonis, Ursula A, MD Endometrial cancer (Primary Dx) 11/07/2024 2:30 PM EDT Nurse Only [facility], [facility], [facility] at [address] [address] Anna Arriaga NP Morrissey, Stephanie S, RN 11/07/2024 8:42 AM EDT - 11/07/2024 11:59 PM EDT Hospital Encounter [facility], [facility], [place] [address] [facility], [facility] [address] [place] [address] Lisa Hickey MD Discharge Disposition: Home or Self Care 11/07/2024 Documentation [facility], [facility], [facility] [address] [facility], [address] [place] [address] Mary Buckley RN 11/07/2024 Documentation [facility], [facility], [facility] [address] [facility], [address] [place] [address] Mary Buckley RN 11/07/2024 Orders Only [facility], [facility], [facility] at [address] [place] [address] Anna Arriaga NP 10/10/2024 10:30 AM EDT Office Visit [facility], [facility] [place] [facility], [facility] [place] [address] [address] Lisa Hickey MD Endometrial cancer (Primary Dx) 10/10/2024 Documentation [facility], [facility], [facility] [address] [facility], [address] [place] [address] Mary Buckley RN 10/10/2024 Documentation [facility], [facility], [facility] [address] [facility], [address] [place] [address] Mary Buckley RN 08/29/2024 Procedure [facility] Imaging Department, [facility], [place] [address] [facility], Floor [address] [place] [address] 08/29/2024 Procedure [facility] Imaging Department, [facility], [place] [address] [facility], Floor [address] [place] [address] from Last 3 Months Immunizations Immunization Administration Dates Next Due COVID-19 (Pre-03/02) Moderna Vaccine, mRNA, PF 0 08/23/2020,07/26/2020 Family History Medical History Relation Comments Skin cancer, unknown type Sister Relation Status Comments Sister Social History Tobacco Use Types Packs/Day Years Used Date Smoking Tobacco: Never Smokeless Tobacco: Never Tobacco Cessation:Counseling Given: Not Answered Education Answer Date Recorded Are you interested in more education? Not on pa e 09/08/2022 Are you concerned about learning? Not on file 09/08/2022 No 09/08/2022 No 09/08/2022 Digital Access Answer Date Recorded No 09/30/2022 No 09/30/2022 Reliable internet access at home? Not on file 09/30/2022 Device with a working camera? Not on file Comments Unknown Sex and Gender Information Value Date Recorded Sex Assigned at Female 09/18/2021 4:30 PM EDT Legal Sex Female 5:58 PM EST Gender Identity Female 09/18/2021 4:30 PM EDT Sexual Orientation Straight 09/18/2021 4: 30 PM EDT Last Filed Vital Signs Vital Sign Reading Time Taken Comments Blood Pressure 130/74 12/05/2024 2:32 PM EDT Pulse 95 12/05/2024 2:32 PM EDT Temperature 36.2 C (97.2 F) 12/05/2024 2:32 PM EDT Respiratory Rate 18 12/05/2024 2:32 PM EDT Oxygen Saturation 97% 12/05/2024 2:32 PM EDT Inhaled Oxygen Concentration - - Weight 85.5 kg (188 lb 7.9 oz) 12/05/2024 2:32 P M EDT Height 167.5 cm (5' 5.95 ) 08/15/2024 1:12 PM ED T Body Mass Index 30.47 08/15/2024 1:12 PM EDT Plan of Treatment Upcoming Encounters Date Type Department Care Team (Late st Contact Info) Description 12/29/2024 9:30 AM EDT Office Visit Division of Hematologic Oncology, [facility] [address] [place] [address] Bianka Hook MD [address] [place] [phone] [email or web address] 01/02/2025 12:30 PM EDT Blood Draw Laboratory Services, [facility] [place] [facility] [place] [address] [facility] 3rd [place] [address] Lisa Hickey MD [address] [place] [address] [email or web address] 01/02/2025 1:30 PM EDT Office Visit [facility], [facility] [place] [facility], [facility] [place] [address] [address] Anna Arriaga NP [address] [facility] [employer]/[place] [address] [email or web address] 01/02/2025 1:30 PM EDT Nurse Only [facility], [facility], [facility] [place] [address] [address] Lisa Hickey MD [address] [place] [phone] [email or web address] 01/30/2025 10:30 AM EDT [facility] [address] [place] [address] Rosa Meadows PA-C [address] [place] [address] Health Maintenance Due Date Last Done Comments DEPRESSION SCREENING 1969 HEPATITIS C SCREENING 12/10/1975 PNEUMOCOCCAL VACCINES (50+ years) (1 of 2 - PCV) 1976 ZOSTER VACCINES (1 of 2) 1976 COLOGUARD 2002 COLONOSCOPY 2002 COLORECTAL CANCER SCREENING 2002 FIT TEST 2002 FOBT 2002 SIGMOIDOSCOPY 2002 VIRTUAL COLONOSCOPY 2002 RSV VACCINE (1 - Risk 60-74 years 1-dose series) 2017 OSTEOPOROSIS SCREENING INITIAL (ONE-TIME) 2022 COVID-19 VACCINE ( season) 2024 04/24/2021, 08/23/2020, 07/26/2020 CREATININE LEVEL 12/05/2025 12/05/2024, , 10/10/2024, Additional history exists MAMMOGRAM 01/26/2026 01/27/2024, 10/2022, 12/05/2021, Additional history exists LIPID PANEL 04/14/2027 04/14/2022 SCREENING FOR DIABETES 12/06/2027 12/05/2024 Adult Td,Tdap Booster 09/30/2028 09/30/2018 SMOKING STATUS SCREENING (Once After 26 Yrs) Completed 10/08/2022 HEPATITIS A VACCINES Aged Out No long er eligible based on patient's age to complete this topic HIB VACCINES Aged Out No longer eligi ble based on patient's age to complete this topic MENINGOCOCCAL VACCINES (ACWY) Aged Out No longer eligible based on patient's age to complete this topic MENINGOCOCCAL VACCINES (B) Aged Out N o longer eligible based on patient's age to complete this topic Medical Devices Not on file Procedures Procedure Name Priority Date/Time Associated Diagnosis Comments PHOSPHORUS Routine 12/05/2024 2:12 PM EDT Endometrial cancer MAGNESIUM Routine 12/05/2024 2:12 PM EDT Endometrial cancer LDH Routine 12/05/2024 2:12 PM EDT Endometrial cancer LACTIC ACID (LACTATE) Routine 12/05/2024 2:12 PM EDT Endometrial cancer CYSTATIN C Routine 12/05/2024 2:12 PM EDT Endometrial cancer COMPREHENSIVE METABOLIC PANEL Routine 12/05/2024 2:12 PM EDT Endometrial cancer HC BLOOD COUNT COMPLETE AUTO&AUTO DIFRNTL WBC Routine 12/05/2024 2:12 PM EDT End[address]rial cancer CT ABDOMEN/PELVIS WITH CONTRAST Routine 11/07/2024 9:59 AM EDT End[address] cancer CT CHEST WITH CONTRAST Routine 9:59 AM EDT Endometrial cancer PHOSPHORUS Routine 11/07/2024 8:59 AM EDT Endometrial cancer MAGNESIUM Routine 11/07/2024 8:59 AM EDT Endometrial cancer LDH Routine 11/07/2024 8:59 AM EDT Endometrial cancer LACTIC ACID (LACTATE) Routine 11/07/2024 8:59 AM EDT Endometrial cancer CYSTATIN C Routine 11/07/2024 8:59 AM EDT Endometrial cancer COMPREHENSIVE METABOLIC PANEL Routine 11/07/2024 8:59 AM EDT Endometrial cancer HC BLOOD COUNT COMPLETE AUTO&AUTO DIFRNTL WBC Routine 11/07/2024 8:59 AM EDT Endometrial cancer PHOSPHORUS Routine 10/10/2024 10:04 AM EDT Endometrial cancer MAGNESIUM Routine 10/10/2024 10:04 AM EDT Endometrial cancer LDH Routine 10/10/2024 10:04 AM EDT Endometrial cancer LACTIC ACID (LACTATE) Routine 10/10/2024 10:04 AM EDT Endometrial cancer CYSTATIN C Routine 10/10/2024 10:04 AM EDT Endometrial cancer COMPREHENSIVE METABOLIC PANEL Routine 10/10/2024 10:04 AM EDT Endometrial cancer HC BLOOD COUNT COMPLETE AUTO&AUTO DIFRNTL WBC Routine 10/10/2024 10:04 AM EDT Endometrial cancer LIPID PANEL Routine 04/14/2022 10:32 AM EST Endometrial cancer from Last 3 Months or Most Recently Relevant to Health Maintenance Results * (ABNORMAL) Cystatin C (12/05/2024 2:12 PM EDT) Only the most recent of3 resultswithin the time period is included. Cystatin C 1.05(H) 0.61 - 0.95 mg/L [facility] LIC# [id number] eGFR (Cystatin C) 66 >59 mL/min/1. 73m2 [facility] LIC# [id number] Comment: Cystatin C-based eGFR may differ substantially from creatinine-based eGFR in patients with abnormal muscle mass or acutely changing renal function. Please interpret together with relevant clinical features. Blood 12/05/2024 2:12 PM EDT 12/05/2024 2:14 PM EDT us Lisa Hickey MD LAB BLOOD ORDERABLES Final Result Performing Organization Address City/[facility]/ZIP Co de Phone Number [facility] LIC# [id number] [address] [place] [address] * (ABNORMAL) LDH (12/05/2024 2:12 PM EDT) Only the most recent of3 resultswithin the time period is included. Pathologist [facility] LDH 232(H) 135 - 225 U/L [facility] LIC# [id number] Blood 12/05/2024 2:12 PM EDT 12/05/2024 2:14 PM EDT us Lisa Hickey MD LAB BLOOD ORDERABLES Final Result Performing Organization Address City/[facility]/ZIP Co de Phone Number [facility] LIC# [id number] [address] [place] [address] * (ABNORMAL) Comprehensive metabolic panel (12/05/2024 2:12 PM EDT) Only the most recent of3 resultswithin the time period is included. Pathologist [facility] SODIUM 138 136 - 145 mmol/L [facility] LIC# [id number] POTASSIUM 4.7 3.4 - 5.1 mmol/L [facility] LIC# [id number] CHLORIDE 99 98 - 107 mmol/L [facility] LIC# [id number] CO2 24 22 - 31 mmol/L [facility]# [id number] BUN 21 6 - 23 mg/dL [facility]# [id number] CREATININE 1.17 0.50 - 1.20 mg/dL [facility]# [id number] GLUCOSE 106(H) 70 - 100 mg/dL [facility]# [id number] ALBUMIN 4.5 3.5 - 5.2 g/dL [facility]# [id number] TOTAL PROTEIN 7.4 6.4 - 8.3 g/dL [facility]# [id number] CALCIUM 9.9 8.8 - 10.7 mg/dL [facility]# [id number] ALKALINE PHOSPHATASE 70 35 - 104 U/L [facility]# [id number] TOTAL BILIRUBIN 0.3 0.2 - 1.2 mg/dL [facility]# [id number] AST 21 <33 U/L [facility]# [id number] ALT 13 <34 U/L [facility]# [id number] GLOBULIN 2.9 2.3 - 4.2 g/dL [facility]# [id number] EGFR 51(L) >59 mL/min/1.7 3m2 [facility]# [id number] Comment:Estimated glomerular filtration rate calculated using the CKD-EPI refit equation. ANION GAP 15 7 - 17 mmol/L [facility]# [id number] Blood 12/05/2024 2:12 PM EDT 12/05/2024 2:14 PM EDT us Lisa Hickey MD LAB BLOOD ORDERABLES Final Result [facility]# [id number] [address] [place] [address], [facility] * (ABNORMAL) CBC and differential (12/05/2024 2:12 PM EDT) Only the most recent of3 resultswithin the time period is included. WBC 4.63 4.00 - 10.00 K/uL [facility]# [id number] RBC 3.75(L) 3.90 - 6.00 M/uL [facility]# [id number] HGB 12.6 11.5 - 16.4 g/dL [facility]# [id number] HCT 36.2 36.0 - 48.0 % [facility]# [id number] PLT 229 150 - 450 K/uL [facility] LIC# [id number] MCV 96.5 80.0 - 100.0 fL [facility]# [id number] MCH 33.6(H) 27.0 - 32.0 pg [facility] LIC# [id number] MCHC 34.8 32.0 - 36.0 g/dL [facility]# [id number] RDW 12.5 11.5 - 14.5 % [facility] LIC# [id number] MPV 8.7 8.4 - 12.0 fL [facility]# [id number] NRBC 0.00 0.00 /100 WBCs [facility]# [id number] ABSOLUTE NRBC 0.00 0 K/uL [facility]# [id number] DIFF METHOD Auto [facility] LIC# [id number] NEUTS 55.6 48.0 - 76.0 % [facility] LIC# [id number] LYMPHS 32.8 18.0 - 41.0 % [facility] LIC# [id number] MONOS 8.4 4.0 - 11.0 % [facility] LIC# [id number] EOS 2.4 0.0 - 5.0 % [facility]# [id number] BASOS 0.6 0.00 - 1.50 % [facility]# [id number] % IMMATURE GRANS 0.2 0.00 - 1.00 % [facility]# [id number] ABSOLUTE NEUTS 2.57 1.92 - 7.60 K/uL [facility]# [id number] ABSOLUTE LYMPHS 1.52 0.72 - 4.10 K/uL [facility]# [id number] ABSOLUTE MONOS 0.39 0.16 - 1.10 K/uL [facility]# [id number] ABSOLUTE EOS 0.11 0.00 - 0.50 K/uL [facility]# [id number] ABSOLUTE BASOS 0.03 0.00 - 0.15 K/uL [facility]# [id number] ABS IMMATURE GRANS 0.01 0.00 - 0.10 K/uL [facility]# [id number] Blood 12/05/2024 2:12 PM EDT 12/05/2024 2:14 PM EDT us Lisa Hickey MD LAB BLOOD ORDERABLES Final Result Performing Organization Address City/[facility]/ZIP Co de Phone Number [facility]# [id number] [address] [place] [address] * Phosphorus (12/05/2024 2:12 PM EDT) Only the most recent of3 resultswithin the time period is included. PHOSPHORUS 4.2 2.5 - 4.5 mg/dL [facility] LIC# [id number] Blood 12/05/2024 2:12 PM EDT 12/05/2024 2:14 PM EDT us Lisa Hickey MD LAB BLOOD ORDERABLES Final Result [facility] LIC# [id number] [address] [place] [address] * Magnesium (12/05/2024 2:12 PM EDT) Only the most recent of3 resultswithin the time period is included. MAGNESIUM 2.1 1.7 - 2.6 mg/dL [facility] LIC# [id number] Blood 12/05/2024 2:12 PM EDT 12/05/2024 2:14 PM EDT Lisa Hickey MD LAB BLOOD ORDERABLES Final Result Performing Organization Address City/[facility]/ZIP Co de Phone Number [facility] LIC# [id number] [address] [place] [address] * Lactate (12/05/2024 2:12 PM EDT) Only the most recent of3 resultswithin the time period is included. LACTIC ACID (MMOL/L) 1.0 0.2 - 2.0 mmol/L [facility] Blood 12/05/2024 2:12 PM EDT 12/05/2024 2:14 PM EDT us Lisa Hickey MD LAB BLOOD ORDERABLES Final Result [facility] [address] [place] [address] * CT CHEST WITH CONTRAST (11/07/2024 9:59 AM EDT) Anatomical Region Laterality Modality Chest Computed Tomogra phy Other 11/07/2024 1:59 PM EDT Impressions 11/07/2024 3:08 PM EDT 1. No evidence of metastatic disease in the chest. 2. No substantial change in diffuse lower lung predominant subpleural reticulation, likely representing interstitial lung abnormality versus mild pulmonary fibrosis. 3. Concurrent CT abdomen/pelvis reported separately. ATTESTATION: Jocelyn Garrido, as teaching physician have reviewed the images, if any, for this patient's exam, and if necessary, have edited the report originally created by Kacie Hernandez. Narrative 11/07/2024 3:[address] CHEST WITH CONTRAST Referring clinician's provided indication for this examination in [facility]: Research Study; evaluation for clinical trial TECHNIQUE: Multidetector CT of the chest was performed with intravenous contrast using tailored dose modulation techniques. COMPARISON: CT CHEST WITH CONTRAST FINDINGS: Devices/Tubes/Lines: None. Lungs: Unchanged biapical pleuroparenchymal scarring. No substantial change in diffuse lower lung predominant subpleural reticulation, likely representing interstitial lung abnormality versus mild fibrosis. No suspicious pulmonary nodule. 3 mm left upper lobe perifissural nodule (12:152), likely an intrapulmonary lymph node. Unchanged left upper lobe calcified granuloma (12:173). Pleura: No pleural effusion or pneumothorax. Mediastinum: Normal heart size. No pericardial effusion. Moderate amount of coronary calcifications. Unchanged calcified left thyroid nodules, incompletely characterized in CT imaging. Lymph Nodes: No pathologically enlarged lymph node Upper Abdomen: Concurrent CT abdomen/pelvis reported separately. Chest Wall: No suspicious lesion. Bones: No suspicious osseous lesion. Procedure Note Jocelyn Arthur MD - 11/07/2024 CT CHEST WITH CONTRAST Referring clinician's provided indication for this examination in [facility]:Research Study; evaluation for clinical trial TECHNIQUE: Multidetector CT of the chest was performed with intravenouscontrast using tailored dose modulation techniques. COMPARISON: CT CHEST WITH CONTRAST FINDINGS: Devices/Tubes/Lines: None. Lungs: Unchanged biapical pleuroparenchymal scarring. No substantialchange in diffuse lower lung predominant subpleural reticulation, likelyrepresenting interstitial lung abnormality versus mild fibrosis. Nosuspicious pulmonary nodule. 3 mm left upper lobe perifissural nodule(12:152), likely an intrapulmonary lymph node. Unchanged left upper lobecalcified granuloma (12:173). Pleura: No pleural effusion or pneumothorax. Mediastinum: Normal heart size. No pericardial effusion. Moderate amountof coronary calcifications. Unchanged calcified left thyroid nodules,incompletely characterized in CT imaging. Lymph Nodes: No pathologically enlarged lymph node Upper Abdomen: Concurrent CT abdomen/pelvis reported separately. Chest Wall: No suspicious lesion. Bones: No suspicious osseous lesion. IMPRESSION: 1. No evidence of metastatic disease in the chest. 2. No substantial change in diffuse lower lung predominant subpleuralreticulation, likely representing interstitial lung abnormality versusmild pulmonary fibrosis. 3. Concurrent CT abdomen/pelvis reported separately. ATTESTATION: Jocelyn Garrido, as teaching physician have reviewed theimages, if any, for this patient's exam, and if necessary, have edited thereport originally created by Kacie Hernandez. us Lisa Hickey MD IMG CT CHEST Final Resu lt * CT ABDOMEN/PELVIS WITH CONTRAST (11/07/2024 9:59 AM EDT) Anatomical Region Laterality Modality Abdomen, Pelvis Computed Tomogra phy Other 11/07/2024 10:3 2 AM EDT Impressions 11/07/2024 10:45 AM EDT No evidence of metastatic disease in the abdomen and pelvis. Narrative 11/07/2024 10:[address] ABDOMEN/PELVIS WITH CONTRAST Referring clinician's provided indication for this examination in [employer]: Research Study; evaluation for clinical trial TECHNIQUE: Multidetector-row CT of the abdomen and pelvis was performed after administration of intravenous contrast using tailored dose modulation techniques. Images were reconstructed in the axial, coronal, and sagittal planes. COMPARISON: CT ABDOMEN/PELVIS WITH CONTRAST FINDINGS: Lower Chest: CT chest from the same day is reported separately. Liver: No focal lesions. Biliary: No radiopaque stones. No biliary ductal dilatation. Spleen: No splenomegaly or focal lesions. Pancreas: No masses or ductal dilatation. Adrenal Glands: No nodules. Kidneys/Ureters: No solid masses, stones, or hydronephrosis. Bowel: No distention or wall thickening. Peritoneum/Retroperitoneum: No masses, pneumoperitoneum, or fluid. Lymph Nodes: No lymphadenopathy. Status post pelvic lymph node dissection. Pelvic Organs/Bladder: Status post hysterectomy and bilateral salpingo- oophorectomy. Vessels: No abdominal aortic aneurysm. Bones/Soft Tissues: No destructive osseous lesions. Degenerative changes of the lumbar spine. Grade 1 anterolisthesis L4 over L5. Tiny fat-containing umbilical hernia. Procedure Note Ivan Kevin MD, PhD - 11/07/2024 CT ABDOMEN/PELVIS WITH CONTRAST Referring clinician's provided indication for this examination in Epic:Research Study; evaluation for clinical trial TECHNIQUE: Multidetector-row CT of the abdomen and pelvis was performedafter administration of intravenous contrast using tailored dosemodulation techniques. Images were reconstructed in the axial, coronal,and sagittal planes. COMPARISON: CT ABDOMEN/PELVIS WITH CONTRAST FINDINGS: Lower Chest: CT chest from the same day is reported separately. Liver: No focal lesions. Biliary: No radiopaque stones. No biliary ductal dilatation. Spleen: No splenomegaly or focal lesions. Pancreas: No masses or ductal dilatation. Adrenal Glands: No nodules. Kidneys/Ureters: No solid masses, stones, or hydronephrosis. Bowel: No distention or wall thickening. Peritoneum/Retroperitoneum: No masses, pneumoperitoneum, or fluid. Lymph Nodes: No lymphadenopathy. Status post pelvic lymph nodedissection. Pelvic Organs/Bladder: Status post hysterectomy and bilateralsalpingo- oophorectomy. Vessels: No abdominal aortic aneurysm. Bones/Soft Tissues: No destructive osseous lesions. Degenerative changesof the lumbar spine. Grade 1 anterolisthesis L4 over L5. Tinyfat-containing umbilical hernia. IMPRESSION: No evidence of metastatic disease in the abdomen and pelvis. Lisa Hickey MD [facility] [place]LVIS Final Re sult * (ABNORMAL) Lipid panel (04/14/2022 10:32 AM EST) CHOLESTEROL 268(H) <200 mg/dL [facility] LIC# [id number] TRIGLYCERIDES 99 35 - 150 mg/dL [facility] [place] LIC# [id number] HDL 63 40 - 80 mg/dL [facility] [place] LIC# [id number] CALCULATED LDL 185(H) 50 - 129 mg/dL [facility] [place] LIC# [id number] VLDL 20 <31 mg/dL [facility] [place] LIC# [id number] CARDIAC RISK RATIO 4.3 0.0 - 5.0 D [facility] LIC# [id number] Blood 04/14/2022 10:3 2 AM EST 04/14/2022 10:35 AM EST us Anna Arriaga PROCUREMENT [facility] BLOOD ORDERABLES Final Result [facility] LIC# [id number] [address] [place] [address] from Last 3 Months or Most Recently Relevant to Health Maintenance Insurance MEDICARE PART A & B [facility] MEDICARE SUPPLEMENT [place] [id number] [facility] SUPPLE[facility] MEDICARE SUPPLEMENT MEDICARE PART A & B [facility] MEDICARE SUPPLEMENT MEDICARE PART A & B [facility] MEDICARE SUPPLEMENT MEDICARE PART A & B [employer] [facility] MEDICARE SUPPLEMENT [employer] [facility] MEDICARE SUPPLEMENT MEDICARE PART A & B [facility] MEDICARE SUPPLEMENT MEDICARE SUPPLEMENT MEDICARE PART A & B Care Teams Bereavement Coordinator Relationship Specialty Start Date End Date Sadie Mccurdy DO [address] [place] [address] PCP - General Internal Medicine 04/06/23 Konrad Maldonado MD [address] [place] [address] [place] [address] Gynecologic Oncology 09/23/21 Jasper Dudley, OBDULIA [address] [place] [id number] [email or web address] Primary Infusion Nurse 02/28/22 Angelika Fagan RN [address] [place] [id number] [email or web address] Associate Infusion Nurse 03/03/22 Julianna Campo RN [address] [place] [address] [email or web address] Associate Infusion Nurse 03/14/22 Ari Gonzales MD [address] [place] [address] Dr Tereso [place] [address] Orthopedic Surgery 09/12/24 Additional Source Comments The information contained in this document represents components of the legal health record. It is not the complete legal health record.[facility]
--- OUTSIDE RECORDS SUMMARY | 2024-12-22 13:37 | XMS_ITS | Patient Health Record ---
Author Organization [facility] Address [address] [place] [id number] Care Team Providers Care Machine Maintenance Technician Name Role Phone Louie Flores Unavailable [phone] Reason For Referral No Information Plan Of Treatment No Information
--- OUTSIDE RECORDS SUMMARY | 2024-12-22 13:37 | XMS_ITS ---
Author Organization [facility] Address [facility] [place] [address] Care Team Providers Care Temple Meat Cutter Name Role Phone Sadie Mccurdy DO Primary Care Provider [phone] Active Problems Problem Noted Date Diagnosed Date Osteoarthritis of both knees 11/06/2020 Chemotherapy-induced thrombocytopenia 07/17/2020 Recurrent carcinoma of endometrium 03/09/2020 Mild intermittent asthma 10/28/2018 Recurrent major depressive disorder, in partial remission 10/28/2018 Elevated cholesterol 10/28/2018 Current Treatment and Therapy Plans No current plan information found. Past Treatment and Therapy Plans ADULT INVESTIGATIONAL Plan Name Start Date Discontinue Date Treatment Medications Discontinue Reason Plan Provider Cycles [id number] AMB - (CARBOplatin / PACLitaxel / [id number] DOSTARLIMAB OR PLACEBO) 020 03/06/2022 CARBOplatin (Paraplatin) in 150 mL [id number] dostarlimab or placebo infusionPACLitaxeL (Taxol) in Non-PVC sodium chloride 0.9% 250 mL infusion Therapy Complete Konrad Maldonado MD 13 of 14 cycles started Mediport Maintenance Plan Name Start Date Discontinue Date Treatment Medications Discontinue Reason Plan Provider MEDIPORT ADMINISTRATION 06/05/2020 12/02/2023 No medications scheduled. Therapy Complete - Lifetime Dose Tracking * Chemical Lifetime Dose Automatic Entry Manual Entr y DLP (Dose Length Product) 2,601 mGy-cm 2,601 mGy-cm 0 mGy-cm CTDI (CT Dose Index) Min 36.91 mGy 36.91 mGy 0 m Gy CTDI (CT Dose Index) Max 36.91 mGy 36.91 mGy 0 m Gy
--- OUTSIDE RECORDS SUMMARY | 2024-12-22 13:38 | XMS_ITS | Patient Health Record ---
Author Organization [facility] Address [address] [place] [address] Care Team Providers Care Agriculture Specialist Name Role Phone Dr Sadie Mccurdy Primary Care Provider Mikal Medrano MD MSc, [facility] Unavailable [phone] Allergies Allergen (clinical drug ingredient) Drug/Non Drug Allergy documented on EMR Reaction Allergy Type Onset Date Status seasonal (uncoded) Unknown Allergy A ctive amoxicillin Amoxicillin hives Drug Allergy Act dominique Reason For Referral No Information Medications Medication SIG (Take, Route, Frequency, Duration) Notes Start Date End Date Status Paxil 10 MG 1 tablet in the morn ing Orally Once a day; Duration: 30 days Active Letrozole 2.5 MG 1 tablet Orally Once a day Active Abemaciclib 50 MG 1 tablet Orally Twic e a day Active metFORMIN HCl 500 MG 1 tablet with a esther l Orally Once a day Active Acetaminophen-Codeine 300-15 MG 1-2 tablet as needed Orally bid prn; Duration: 3 days 04/18/2018 Not-Taking Senna S 8.6-50 MG 1 tablet as needed Orally Twice a day Active ALPRAZolam 0.25 MG 1 tablet Orally 1 ho ur before procedure. REpeat once at time of procedure; Duration: 1 days 04/18/2018 Not-Taking Hyaluronic Acid 100 MG as directed Orally Active Cephalexin 500 MG 2 capsule Orally 1 h our before procedure; Duration: 1 days 04/18/2018 Not-Taking Alpha Lipoic Acid 200 MG 1 capsule Orall y Once a day Active Turmeric 500 MG as directed Orally Not-Taking [place] 3 1000 MG 1 capsule Orally Onc e a day; Duration: 30 day(s) Not-Taking Pravastatin Sodium 20 MG 1 tablet Orally Once a day; Duration: 30 day(s) Not-Taking Calcium + D 315-200 MG-UNIT 1 tablet Orally Twice a day; Duration: 30 day(s) Active Multivitamin Adults 50+ - [...] Problem Status W/U Status Risk Notes Problem Bilateral arthritis of knees ([id number]) Primary osteoarthritis of knees, bilateral (M17.0) Active confirmed Plan Of Treatment No Information Insurance Providers Payer Name Payer Address Payer Phone Subscriber Number Group Number Insured Name Patient Relationship to Insured Coverage Start Date Coverage End Date MEDICARE NGS [address] [place] [phone] [id number] Elyssa Romero Self - patient is the insured [facility] [address] [place], [place] [id number] [phone] [id number] Elyssa Romero Self - patient is the insured Medical (General) History Medical History History ICD Code Cancer- uterine s/p hysterec frederic July 2017 with clear margins and no lymph node involvement. 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 States that 06/15/23 she has had a clean CT scan without evidence of recurrent ca HyperCholesterolemia asthma Bronchitis Anxiety disorder Depression Varicose veins Surgical History Surgery Date(Month/Year) Hysterectomy for endometrial cancer- in situ, no lymph node involvement. SHIPPER RECEIVER oncologist Orin Tucker [phone] 07/26 vein ligation C/S x3 excision of benign bone tumor right leg Dr Lisandro Maldonado, Abdominal surgery for cancer - s/p chemo 02/2020
== END 2024-12-22 13:21 | disposition home or self-care (01) ==
LOC: HO.HOS 12:52
PROVIDERS: Visit Provider Orthopaedic Surgery
DX: M25.562 Pain in left knee (principal); Z96.652 Presence of left artificial knee joint
CPT/HCPCS: 99213; G2211

== ENCOUNTER → 2024-12-22 12:51 | Outpatient (BNVA) | payer MEDICARE, SELFPAY | PROVIDERS: Visit Provider Orthopaedic Surgery | DX: M25.562 Pain in left knee (principal); Z96.652 Presence of left artificial knee joint | CPT/HCPCS: 99212 ==